=== PATIENT | male | born 1955 | race Caucasian/White ===

== ENCOUNTER 2023-04-13 07:29 | Outpatient (AMB) | payer BC, SELFPAY ==
--- NOTE | 2023-04-13 07:34 | MHC.PC.OV ---
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 Required: No Accompanied by: Self / Same As Patient Allergies erythromycin base Allergy (Severe, Verified 04/13/23 07:48) Eye Swelling Medication List - Last Reconciled 04/13/23 by Whitney Block MD pantoprazole 40 mg PO DAILY simvastatin 5 mg PO DAILY Tobacco use date assessed: 04/13/23 Fall risk assessment: No Falls in past year Last assessed Fall Risk: 04/13/23 Dental Screening Dental Screen Date: 04/13/23 Did you have a dental visit in the last 12 months?: Yes Did you have a dental problem in the last 6 months where you did not have access to dental care?: No Was dental information given to patient?: Patient has dentist HPI HPI Comments History of Present Illness Details This is a 67-year-old male with chronic GERD and pure hypercholesterolemia that comes today to establish care. GERD stable with PPIs. Had an endoscopy about 10 years ago. Has been having GERD for the past 20-30 years. Lipid panel will be order. Compliant with medications. Denies any chest pain or shortness of breath. No change in bowel or bladder habits. Last colonoscopy was about 2-3 years ago and as per patient was normal. He has history of BPH and will be referred to Urology. [facility] Surgical History History of surgery History of tonsillectomy Family History (Updated 04/13/23 @ 07:56 by Whitney Block MD) Mother Cancer Father No problems noted. Family/Other Substance use disorder Mental health disorder Maternal Uncle Lung cancer Social History (Updated 04/13/23 @ 07:56 by Whitney Block MD) Housing: House Alcohol intake: current Alcohol intake frequency: a few times a week Alcohol type: beer, wine and hard liquor Patient Tobacco Use Status: Former Tobacco user Tobacco use type: Cigarette e-Cigarette/Vaping Use: Never Used Second Hand Smoke Exposure: No service: Yes Current occupational status: retired Cognitive needs: No Hearing needs: No Vision needs: No Questionnaire PHQ-9 Over the last 2 weeks, how often have you been bothered by any of the following problems? 1. Little interest or pleasure in doing things: not at all 2. Feeling down, depressed, or hopeless: not at all 3. Trouble falling or staying asleep, or sleeping too much: not at all 4. Feeling tired or having little energy: not at all 5. Poor appetite or overeating: not at all 6. Feeling bad about yourself - or that you are a failure or have let yourself or your family down: not at all 7. Trouble concentrating on things, such as reading the newspaper or watching television: not at all 8. Moving or speaking so slowly that other people could have noticed. Or the opposite - being so fidgety or restless that you have been moving around a lot more than usual: not at all 9. Thoughts that you would be better off or of hurting yourself in some way: not at all Total score: 0 Depression Screening Interpretation: Negative 37607 - PHQ-9 Billing: Yes Source: Developed by Drs. Luke Manriquez, Alana Vega, Arias Morales and colleagues, with an educational brittanie from [employer] Thrive Questionnaire Date Thrive assessed: 04/13/23 I am a: Patient What is your living situation today?: I have a steady place to live Within the past 12 months, did the food you bought not last and you didn't have the money to get more?: Never true Within the past 12 months, did you worry whether your food would run out before you got money to buy more?: Never true Do you have trouble paying for medicines?: No Do you have trouble getting transportation to medical appointments?: No Do you have trouble paying your heating and electricity bill?: No Do you have trouble taking care of your child, family member or friend?: No Do you have trouble with day-to-day activities such as bathing, preparing meals, shopping, managing finances, etc.?: No Are you currently unemployed and looking for a job?: No Are you interested in more education?: No Please select the resources that you would like help with: None Currently or been in a relationship where the following occur: no concerns reported AUDIT C Alcohol Use Questionnaire (AUDIT-C) 1. How often do you have a drink containing alcohol?: 2-3 times a week 2. How many drinks containing alcohol do you have on a typical day when you are drinking?: 1 or 2 3. How often do you have six or more drinks on one occasion?: Never Total Score: 3 Score Reviewed/Action Taken: No CIARA-7 AMB Questionnaire CIARA-7 Date CIARA - 7 assessed: 04/13/23 Feeling nervous, anxious, or on edge: 0 = Not at all Not being able to stop or control worryin = Not at all Worrying too much about different things: 0 = Not at all Trouble relaxin = Not at all Being so restless that it is hard to sit still: 0 = Not at all Becoming easily annoyed or irritable: 0 = Not at all Feeling afraid as if something awful might happen: 0 = Not at all Total CIARA-7 score (0-4 normal; 5-9 mild; 10-14 moderate; 15-21 severe): 0 Source: Developed by Drs. Luke Manriquez, Alana Vega, Arias Morales and colleagues, with an educational brittanie from [employer] CIARA-7 Assessment Billing CIARA-7 Assessment Tool: CIARA-7 Assessment 75340 Review of Systems Const All systems reviewed & are unremarkable except as noted in HPI and below Eyes Reports no additional complaints, Denies change in vision and Denies other visual disturbances Card Denies chest pain at rest, Denies chest pain with activity, Denies edema, Denies irregular heart rhythm, Denies claudication, Denies dyspnea, Denies dyspnea on exertion, Denies orthopnea, Denies paroxysmal nocturnal dyspnea and Denies slow heart rate Resp Denies cough, Denies dyspnea and Denies dyspnea on exertion GI Denies abdominal pain, Denies change in bowel habits, Denies excessive flatus, Denies nausea and Denies vomiting Denies urinary hesitancy, Denies urinary incontinence and Denies urinary urgency Musc Denies abnormal gait, Denies atrophy, Denies deformity and Denies limited range of motion Skin/Breast Denies bleeding lesions, Denies changing lesions and Denies rash Neuro Denies abnormal gait and Denies lack of coordination Physical exam (Primary Care) Vital Signs: Last Vital Signs BP 122/78 04/13/23 07:37 BMI result Body Mass Index 27.1 Tobacco/Smoking Status: Tobacco use Status Tobacco use date assessed 04/13/23 04/13/23 07:48 Patient Tobacco Use Status Former Tobacco user 04/13/23 07:56 Tobacco use type Cigarette 04/13/23 07:56 e-Cigarette/Vaping Use Never Used 04/13/23 07:56 PHQ-9: PHQ-9 Score PHQ-9: Total score 0 04/13/23 07:57 Depression Screening Interpretation: Negative Thrive Assessment: Date of Thrive Assessment Date Thrive assessed 04/13/23 04/13/23 07:36 Currently or been in a relationship where the following occur: no concerns reported HENMT Head: Yes normal to inspection, Yes normocephalic and Yes atraumatic Ears: external ears normal General nose exam: Normal external nose present and No nasal discharge present Face and sinus: Yes sinuses nontender Mouth: lip normal Eyes General: appearance normal, both eyes and all related structures Eyelids: Yes eyelids normal Conjunctivae: conjunctivae normal Neck Neck: Yes normal visual inspection and Yes supple Resp Effort & Inspection: normal respiratory effort Auscultation: clear to auscultation bilaterally Cardio Jugular venous distension: no JVD Rate: regular rate Rhythm: regular rhythm Heart sounds: S1 normal heart sound present and S2 normal heart sound present Extrem General: Yes full ROM Assessment and Plan Assessment & Plan (1) Pure hypercholesterolemia: Code(s): E78.00 - Pure hypercholesterolemia, unspecified Plan: Repeat lipid panel. Continue statins. (2) Chronic GERD: Code(s): K21.9 - Gastro-esophageal reflux disease without esophagitis Plan: Continue PPIs (3) BPH (benign prostatic hyperplasia): Code(s): N40.0 - Benign prostatic hyperplasia without lower urinary tract symptoms Plan: Referred to Urology Orders: Orders Comprehensive [place]. Panel Fast Today E78.00 - Pure hypercholesterolemia, unspecified Lipid Panel Today E78.5 - Hyperlipidemia, unspecified PSA,Total (Free>4and<10) Today Z12.5 - Encounter for screening for malignant neoplasm of prostate Referrals Urology Referral N40.0 - Benign prostatic hyperplasia without lower urinary tract symptoms Coding Level of Care Code New Pt Level 3 (37994) Diagnoses Pure hypercholesterolemia E78.00 Chronic GERD K21.9 BPH (benign prostatic hyperplasia) N40.0 Additional Codes CIARA-7 Assessment Billing - CIARA-7 Assessment Tool: CIARA-7 Assessment 93388 ([id number]) Time Spent (min) 20
[2023-04-13 07:37] VITALS: BP 122/78; BMI 27.1
== END 2023-04-13 08:00 | disposition home or self-care (01) ==
PROVIDERS: PCP Internal Medicine; Visit Provider Internal Medicine
DX: E78.00 Pure hypercholesterolemia, unspecified (principal); K21.9 Gastro-esophageal reflux disease without esophagitis; N40.0 Benign prostatic hyperplasia without lower urinary tract symptoms
CPT/HCPCS: 99203

== ENCOUNTER 2023-04-13 08:08 | Outpatient (REF) | payer BC, SELFPAY ==
[2023-04-13 09:23] LABS: Alanine Aminotransferase 95 U/L (0-40); Albumin Level 4.4 g/dL (3.5-5.0); Alkaline Phosphatase 44 U/L (39-117); Anion Gap 15 (12-20); Aspartate Amino Transferase 49 U/L (5-37); Bilirubin Total 0.5 mg/dL (0.0-1.0); Blood Urea Nitrogen 15 mg/dL (9-16); Calcium 9.4 mg/dL (8.4-10.2); Carbon Dioxide 21 mmol/L (22-29); Chloride 107 mmol/L (96-108); Cholesterol 148 mg/dL; Estimated Glomerular Filt Rate > 60; Glucose Fasting 112 mg/dL (60-99); HDL Cholesterol 44 mg/dL; LDL Cholesterol Calculated 89 mg/dl; Potassium 4.3 mmol/L (3.3-5.1); Sodium 139 mmol/L (135-145); Total Protein 7.3 g/dL (6.5-8.0); Triglycerides 78 mg/dL
[2023-04-13 09:36] LABS: PSA,Total (Free>4and<10) 0.98 ng/mL (0.00-4.00)
== END 2023-04-13 08:09 | disposition home or self-care (01) ==
LOC: HO.LAB 08:08
PROVIDERS: PCP Internal Medicine; Visit Provider Internal Medicine
DX: Z12.5 Encounter for screening for malignant neoplasm of prostate (principal); E78.00 Pure hypercholesterolemia, unspecified; E78.5 Hyperlipidemia, unspecified
CPT/HCPCS: 36415; 80053; 80061; 84153

== ENCOUNTER 2023-05-30 12:55 | Outpatient (AMB) | payer BC, SELFPAY ==
--- NOTE | 2023-05-30 13:07 | MHC.OFFVIS ---
Intake Intake Visit Reasons: BPH without lower urinary tract symptoms Intake Note: New Patient presents for initial visit history of abnormal CHAVO Urology Medications: none Blood Thinner: none PVR: 0ml's Tree Pruner Required: No Accompanied by: Self / Same As Patient Allergies erythromycin base Allergy (Severe, Verified 05/30/23 21:42) Eye Swelling Medication List - Last Reconciled 05/30/23 by ARPIT HuffP- pantoprazole 40 mg PO DAILY simvastatin 20 mg PO BEDTIME 90 days HPI HPI Comments History of Present Illness Details Adam is a very pleasant 67-year-old male patient of Dr. Stewart. He has a PMH of GERD. He presents to the office today as a new patient to establish urology care. In discussion with the patient today he reports to be doing and feeling well. He reports following up with urologist in [place] where he used to live at which time he underwent a prostate biopsy for an abnormal CHAVO. He reports biopsy to have been negative. He discusses at length having a bad experience with the biopsy. In review of patient's chart it appears PSA has been obtained. These results were reviewed with the patient today. PSA 04/09--1.0. When asked patient denies any bothersome urinary issues or concerns at this time. When asked he denies urinary urgency, urinary frequency, incontinence, nocturia, hematuria, dysuria, foul smelling urine, changes to urinary stream, flank pain, fever, and or chills. He is happy with his current voiding parameters. He otherwise offers no issues or concerns at this time. CHAVO offered however deferred. Discussed signing medical release form for previous urology records for continuity of care. In office urinalysis results reviewed with the patient today. PVR 0 mL. [facility] Surgical History History of tonsillectomy History of surgery Family History Mother Cancer Father No problems noted. Family/Other Substance use disorder Mental health disorder Maternal Uncle Lung cancer Social History Housing: House Alcohol intake: current Alcohol intake frequency: a few times a week Alcohol type: beer, wine and hard liquor Patient Tobacco Use Status: Former Tobacco user Tobacco use type: Cigarette e-Cigarette/Vaping Use: Never Used Second Hand Smoke Exposure: No service: Yes Current occupational status: retired Cognitive needs: No Hearing needs: No Vision needs: No Review of Systems Const All systems reviewed & are unremarkable except as noted in HPI and below Reports no additional complaints Eyes Reports no additional complaints ENT Reports no additional complaints Card Reports no additional complaints Resp Reports no additional complaints GI Reports as per HPI Reports as per HPI Musc Reports no additional complaints Neuro Reports no additional complaints Psych Reports no additional complaints Endo Reports no additional complaints Guillermo/Lymph Reports no additional complaints Aller/Immun Reports no additional complaints Physical Exam Const General: cooperative, healthy appearing, comfortable, no acute distress, well developed, alert and awake Orientation/consciousness: patient oriented x3 Limitations: no limitations HEENT Head: Yes normal to inspection, Yes normocephalic and Yes atraumatic Ears: hearing grossly normal bilaterally Eyes General: appearance normal, both eyes and all related structures Neck Neck: Yes normal visual inspection and Yes trachea midline Chest Chest palpation & inspection: normal inspection of the chest Resp Effort & Inspection: normal respiratory effort and able to speak in complete sentences Cardio Rate: regular rate GI Inspection: Yes normal to inspection General: Yes no CVA tenderness Back/Spine/Pelvis Back: no CVA tenderness Skin General skin exam: no rashes or lesions noted Neuro General: patient oriented x3 Extrem General: Yes normal to inspection Psych Appearance: grossly normal and well kempt Mental Status: mental status grossly normal Speech and movement: Normal speech and movement present and Clear speech present Affect: normal affect Attitude: cooperative Thought process: Normal thought process present Thought content: Normal thought content present Insight: Good insight present (Psych) Judgement: Good judgement present (Psych) Results AMB Urinalysis, Automated UA Leukoctes 0 Garry/uL Last Edit by [employer] on 05/30/23 13:26 UA Nitrite Last Edit by M [employer] on 05/30/23 13:26 UA Urobilinogen 0.2 mg/dL Last Edit by Mamaherb on 05/30/23 13:26 UA Protein 0 mg/dL Last Edit by Mamaherb on 05/30/23 13:26 UA pH 6.0 Last Edit by [employer] Amanda on 05/30/23 13:26 UA Blood 0 Eric/uL Last Edit by Haleigh Ariasnishant on 05/30/23 13:26 UA Specific [place] 1.015 Last Edit by Haleigh Juananishant on 05/30/23 13:26 UA Ketone Negative Last Edit by Haleigh Patel on 05/30/23 13:26 UA Bilirubin 0 mg/dL Last Edit by Haleigh Patel on 05/30/23 13:26 UA Glucose 0 mg/dL Last Edit by Haleigh Patel on 05/30/23 13:26 Results Reviewed Results Reviewed: Laboratory Last Values Urine pH (Auto) 6.0 05/30/23 13:13 Specific [place] (Auto) 1.015 05/30/23 13:13 Urine Protein (Auto) 0 mg/dL 05/30/23 13:13 Glucose (UA)(Auto) 0 mg/dL 05/30/23 13:13 Urine Ketones (Auto) Negative 05/30/23 13:13 Urine Blood (Auto) 0 Eric/uL 05/30/23 13:13 Urine Bilirubin (Auto) 0 mg/dL 05/30/23 13:13 Urine Urobilinogen (Auto) 0.2 mg/dL 05/30/23 13:13 Leukocyte Esterase (Auto) 0 Garry/uL 05/30/23 13:13 Assessment & Plan Assessment & Plan (1) Abnormal digital rectal exam: Code(s): R68.89 - Other general symptoms and signs Plan In office urinalysis results reviewed with the patient today; as noted above. PVR 0 mL. Discussed obtaining previous urology records for continuity of care. Patient denies any bothersome urinary issues or concerns at this time. Recent PSA results reviewed with the patient today; as noted above Patient with history of abnormal CHAVO and negative biopsy in the past; will attempt to obtain previous urology records CHAVO offered however deferred. Will obtain PSA in 1 year. Follow-up in 1 year with lab to be completed prior; or sooner with any issues, concerns, and or questions. Orders: Orders AMB Urinalysis Automated Today Z13.9 - Encounter for screening, unspecified Prostate Specific Antigen 364 Days R68.89 - Other general symptoms and signs Patient Instructions: The patient had an opportunity to ask questions regarding the treatment plan. All questions were answered. Physical exam, labs, and imaging were discussed and reviewed in detail. As well as risks, benefits, and discussion of treatment choices. No major barriers to understanding were identified. The patient expressed understanding and agreement with the above treatment plan. The patient was made aware they should contact our office by phone for worsening of their current condition, the appearance of new symptoms, or with any questions or concerns. Compliance is encouraged with any medications and follow up testing that is ordered. It is a privilege to be allowed the opportunity to participate in? your urological care.? Again, if you have any questions or concerns If you have any questions or concerns please do not hesitate to contact me. The office is [phone]. This note is constructed using voice recognition software. While every effort has been made to ensure accuracy curriculum assistant principal errors may have been included. Yours sincerely, LENARD Huff Coding Level of Care Code New Pt Level 3 (46535) Diagnoses Abnormal digital rectal exam R68.89
== END 2023-05-30 13:39 | disposition home or self-care (01) ==
PROVIDERS: PCP Internal Medicine; Visit Provider Nurse Practitioner Family
DX: R68.89 Other general symptoms and signs (principal)
CPT/HCPCS: 99203

== ENCOUNTER → 2023-05-30 12:55 | Outpatient (BNVA) | payer BC, SELFPAY | PROVIDERS: PCP Internal Medicine; Visit Provider Nurse Practitioner Family | DX: R68.89 Other general symptoms and signs (principal) | CPT/HCPCS: 81003 ==

== ENCOUNTER 2023-07-03 11:32 | Outpatient (REF) | payer BC, SELFPAY ==
[2023-07-03 13:19] LABS: Alanine Aminotransferase 59 U/L (0-40); Albumin Level 4.7 g/dL (3.5-5.0); Alkaline Phosphatase 47 U/L (39-117); Aspartate Amino Transferase 31 U/L (5-37); Bilirubin Direct 0.2 mg/dL (0.0-0.5); Bilirubin Total 0.6 mg/dL (0.0-1.0); Total Protein 7.6 g/dL (6.5-8.0)
== END 2023-07-03 11:33 | disposition home or self-care (01) ==
LOC: HO.LAB 11:32
PROVIDERS: PCP Internal Medicine; Visit Provider Internal Medicine
DX: E78.00 Pure hypercholesterolemia, unspecified (principal)
CPT/HCPCS: 36415; 80076

== ENCOUNTER 2023-08-16 15:33 | Outpatient (AMB) | payer BC, SELFPAY ==
[2023-08-16 15:35] VITALS: BP 132/78; BMI 27.3
--- NOTE | 2023-08-16 15:35 | MHC.PC.OV ---
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 Required: No Accompanied by: Self / Same As Patient Allergies erythromycin base Allergy (Severe, Verified 08/16/23 15:46) Eye Swelling Medication List - Last Reconciled 08/16/23 by Whitney Block MD pantoprazole 40 mg PO DAILY simvastatin 20 mg PO BEDTIME 90 days Tobacco use date assessed: 04/13/23 Fall risk assessment: No Falls in past year Last assessed Fall Risk: 08/16/23 Dental Screening Dental Screen Date: 08/16/23 Did you have a dental visit in the last 12 months?: Yes Did you have a dental problem in the last 6 months where you did not have access to dental care?: No Was dental information given to patient?: Patient has dentist HPI HPI Comments History of Present Illness Details This is a 67-year-old male with pure hypercholesterolemia, BPH, and chronic GERD that comes today for follow-up on his conditions. Last cholesterol was stable. BPH is follow by a Urology. GERD stable with PPIs. Was a former smoker and ultrasound of the abdomen will be done to rule out abdominal aortic aneurysm. Complains of abdominal discomfort and has diastasis recti in abdomen. No chest pain or shortness of breath. Transaminitis improved when simvastatin was decreased from 40 mg to 20 mg. [facility] Surgical History History of tonsillectomy History of surgery Family History Mother Cancer Father No problems noted. Family/Other Substance use disorder Mental health disorder Maternal Uncle Lung cancer Social History Housing: House Alcohol intake: current Alcohol intake frequency: a few times a week Alcohol type: beer, wine and hard liquor Patient Tobacco Use Status: Former Tobacco user Tobacco use type: Cigarette e-Cigarette/Vaping Use: Never Used Second Hand Smoke Exposure: No service: Yes Current occupational status: retired Cognitive needs: No Hearing needs: No Vision needs: No Questionnaire Thrive Questionnaire Date Thrive assessed: 04/13/23 CIARA-7 AMB Questionnaire CIARA-7 Date CIARA - 7 assessed: 04/13/23 Source: Developed by Drs. Luke Manriquez, Alana Vega, Arias Morales and colleagues, with an educational brittanie from [employer]. Review of Systems Const All systems reviewed & are unremarkable except as noted in HPI and below Eyes Reports no additional complaints, Denies change in vision and Denies other visual disturbances Card Denies chest pain at rest, Denies chest pain with activity, Denies edema, Denies irregular heart rhythm, Denies claudication, Denies dyspnea, Denies dyspnea on exertion, Denies orthopnea, Denies paroxysmal nocturnal dyspnea and Denies slow heart rate Resp Denies cough, Denies dyspnea and Denies dyspnea on exertion GI Reports abdominal pain, Denies change in bowel habits, Denies excessive flatus, Denies nausea and Denies vomiting Denies urinary hesitancy, Denies urinary incontinence and Denies urinary urgency Musc Denies abnormal gait, Denies atrophy, Denies deformity and Denies limited range of motion Skin/Breast Denies bleeding lesions, Denies changing lesions and Denies rash Neuro Denies abnormal gait and Denies lack of coordination Physical exam (Primary Care) Vital Signs: Last Vital Signs BP 132/78 08/16/23 15:35 BMI result Body Mass Index 27.3 Tobacco/Smoking Status: Tobacco use Status Tobacco use date assessed 04/13/23 08/16/23 15:39 Patient Tobacco Use Status Former Tobacco user 08/16/23 15:39 Tobacco use type Cigarette 08/16/23 15:39 e-Cigarette/Vaping Use Never Used 08/16/23 15:39 Thrive Assessment: Date of Thrive Assessment Date Thrive assessed 04/13/23 08/16/23 15:39 Eyes General: appearance normal, both eyes and all related structures Eyelids: Yes eyelids normal Conjunctivae: conjunctivae normal Neck Neck: Yes normal visual inspection and Yes supple Resp Effort & Inspection: normal respiratory effort Auscultation: clear to auscultation bilaterally Cardio Jugular venous distension: no JVD Rate: regular rate Rhythm: regular rhythm Heart sounds: S1 normal heart sound present and S2 normal heart sound present GI Other: rectus diastasis Palpation (GI): Soft to palpation Auscultation: normal bowel sounds Extrem General: Yes full ROM Office Procedures Flu Questionnaire Does the patient have a severe egg allergy?: No Immunizations flu vacc [id number] 6mos up(PF) 60 mcg(15 mcgx4)/0.5 mL IM syringe Performing Provider: Whitney Block MD [facility] Documented (not given) by: PASCALE Winston on 08/16/23 15:40 Reason Not Given: Patient Refused Assessment and Plan Assessment & Plan (1) Pure hypercholesterolemia: Code(s): E78.00 - Pure hypercholesterolemia, unspecified Plan: Continue statins. (2) Chronic GERD: Code(s): K21.9 - Gastro-esophageal reflux disease without esophagitis Plan: Continue PPIs. (3) BPH (benign prostatic hyperplasia): Code(s): N40.0 - Benign prostatic hyperplasia without lower urinary tract symptoms Plan: Follow-up with Urology. (4) Former smoker: Code(s): Z87.891 - Personal history of nicotine dependence Plan: Ultrasound of the abdomen ordered to rule out abdominal aortic aneurysm. Orders: Orders Influenza [id number] Immunization Today Z23 - Encounter for immunization US abdominal aortic aneurysm Today Z87.891 - Personal history of nicotine dependence Lipid Panel 8 Months E78.5 - Hyperlipidemia, unspecified Comprehensive [place]. Panel Fast 8 Months E78.00 - Pure hypercholesterolemia, unspecified Magnesium 8 Months K21.9 - Gastro-esophageal reflux disease without esophagitis Medications: Refilled pantoprazole 40 mg PO DAILY 90 tabs 1RF K21.9 - Gastro-esophageal reflux disease without esophagitis simvastatin 20 mg PO BEDTIME 90 tabs 1RF 90 days Coding Level of Care Code Est Pt Level 4 (37702) Diagnoses Pure hypercholesterolemia E78.00 Chronic GERD K21.9 BPH (benign prostatic hyperplasia) N40.0 Former smoker Z87.891 Time Spent (min) 21
== END 2023-08-16 15:57 | disposition home or self-care (01) ==
PROVIDERS: PCP Internal Medicine; Visit Provider Internal Medicine
DX: E78.00 Pure hypercholesterolemia, unspecified (principal); K21.9 Gastro-esophageal reflux disease without esophagitis; N40.0 Benign prostatic hyperplasia without lower urinary tract symptoms; Z87.891 Personal history of nicotine dependence
CPT/HCPCS: 99214

== ENCOUNTER 2023-09-19 08:39 | Outpatient (REF) | payer BC, SELFPAY | END 2023-09-19 08:40 | disposition home or self-care (01) | LOC: HO.US 08:39 | PROVIDERS: PCP Internal Medicine; Visit Provider Internal Medicine | DX: Z13.6 Encounter for screening for cardiovascular disorders (principal); Z87.891 Personal history of nicotine dependence | CPT/HCPCS: 76706 ==

== ENCOUNTER 2024-02-05 10:09 | Outpatient (AMB) | payer BC, SELFPAY ==
--- NOTE | 2024-02-05 10:38 | MHC.OFFWIV ---
Intake Vital Signs 02/05/24 10:40 Height 5 ft 10 in Weight 195 lb 6 oz BMI 28.0 BP 138/80 Blood Pressure Location Lt brachial Position Sitting Respiration 16 Pulse 75 Pulse Source Pulse Oximeter Temp 97.7 F Temp Source Temporal Artery Scan Pulse Oximetry (%) 95 Oxygen Delivery Method Room Air Intake Visit Reasons: Clogged ears Intake Note: Clogged ears. Used debrox for 4 days prior to appointment. Patient Tobacco Use Status: Former Tobacco user Physician Assistant Certified Required: No Allergies erythromycin base Allergy (Severe, Verified 02/05/24 11:25) Eye Swelling Medication List - Last Reconciled 02/05/24 by Christy Montalvo, [facility]- pantoprazole 40 mg PO DAILY simvastatin 20 mg PO BEDTIME 90 days Do you need a note to return to daycare/school/sports/work: No HPI HPI Comments History of Present Illness Details Here today after going to hearing clinic & was told he needed his ears cleaned out does have a hx of perforated ear drum on L this was in 1969 Denies pain or drainage Has been using debrox Flying out to [place] Monday & wants to make sure his ears are all set. [facility] Surgical History History of tonsillectomy History of surgery Family History Mother Cancer Father No problems noted. Family/Other Substance use disorder Mental health disorder Maternal Uncle Lung cancer Social History Housing: House Alcohol intake: current Alcohol intake frequency: a few times a week Alcohol type: beer, wine and hard liquor Patient Tobacco Use Status: Former Tobacco user Tobacco use type: Cigarette e-Cigarette/Vaping Use: Never Used Second Hand Smoke Exposure: No service: Yes Current occupational status: retired Cognitive needs: No Hearing needs: No Vision needs: No Review of Systems Const All systems reviewed & are unremarkable except as noted in HPI and below Physical Exam Vital Signs: Last Vital Signs Temp 97.7 F 02/05/24 10:40 Pulse 75 02/05/24 10:40 Resp 16 02/05/24 10:40 BP 138/80 02/05/24 10:40 Pulse Ox 95 02/05/24 10:40 Oxygen Delivery Method Room Air 02/05/24 10:40 BMI result Body Mass Index 28.0 Const Other: Awake alert oriented Cerumen impaction bilat left greater than right s/p lavage successful removal of large amts of cerumen, EAC clear, TM intact. Pt reports improvement in hearing Office Procedures Cerumen Removal From which ear canal was the cerumen removed: bilateral Removal: irrigation Notes: patient tolerated procedure well, no complications and ear canal clear 56295-Seg Irrigation/Lavage Assessment & Plan Assessment & Plan (1) Impacted cerumen, bilateral: Code(s): H61.23 - Impacted cerumen, bilateral Plan: . Patient Instructions: Earwax (Cerumen Impaction) Created in Ears Earwax, called cerumen, is produced by special wax-forming glands located in the skin of the outer one-third of the ear canal. It is normal to have cerumen in ear canal as this waxy substance serves as a self-cleaning agent with protective, lubricating, and antibacterial properties. The absence of earwax may result in dry, itchy ears. Self-cleaning means there is a slow and housing management officer movement of earwax and skin cells from the eardrum to the ear opening. Old earwax is constantly being transported, assisted by chewing and jaw motion, from the ear canal to the ear opening where, most of the time, it dries, flakes, and falls out. What Are the Symptoms of an Earwax Blockage? Symptoms of an earwax problem may include: Earache Feeling of plugged hearing or fullness in the ear Partial hearing loss that gets worse Tinnitus, ringing, or noises in the ear Itching, odor, or discharge Coughing Pain Infection What Causes Earwax Blockage? When a patient has wax blockage against the eardrum, it is often because they have been probing the ear with such things as cotton-tipped swabs, jose manuel pins, or twisted napkin corners. These objects only push the wax in deeper in the ear canal. Why Is It Dangerous to Use Swabs to Remove Earwax? Wax blockage is one of the most common causes of hearing loss. This is often caused by attempts to clean the ear with cotton swabs. Most cleaning attempts merely push the wax deeper into the ear canal which is shaped like an hourglass, causing a blockage at the narrowing part of the ear canal. In addition, accidental trauma to the ear drum or ear bones can occur if the swab is pushed too deep. Good intentions to keep ears clean may lessen the ability to hear. The ear is a delicate and complicated body part, including the skin of the ear canal and the eardrum. Therefore, special care should be given to this part of the body. Discontinue the habit of inserting cotton-tipped swabs or other objects into the ear canals. What Are the Treatment Options? Cleaning a working ear can be done by washing it with a soft cloth, but do not insert anything into the ear. Ideally, the ear canals should never have to be cleaned. However, that isn?t always the case. The ears should be cleaned when enough earwax gathers to cause symptoms or to prevent a needed assessment of the ear by your doctor. This condition is call cerumen impaction. Most cases of ear wax blockage respond to home treatments used to soften wax. Patients can try placing a few drops of mineral oil, baby oil, glycerin, or commercial drops in the ear. Detergent drops such as hydrogen peroxide or carbamide peroxide (available in most pharmacies) may also aid in the removal of wax. Irrigation or ear syringing is commonly used for cleaning and can be performed by a physician or at home using a commercially available irrigation kit. Common solutions used for syringing include water and saline, which should be warmed to body temperature to prevent dizziness. Ear syringing is most effective when water, saline, or wax dissolving drops are put in the ear canal 15 to 30 minutes before treatment. Caution is advised to avoid having your ears irrigated if you have diabetes, a hole in the eardrum (perforation), tube in the eardrum, skin problems such as eczema in the ear canal or a weakened immune system. >> If you have been prescribed Debrox, use as directed for 5 nights and return to the office on Day 6 for an ear lavage to remove the wax<< Manual removal of earwax is also effective. This is most often performed by an ENT (ear, nose, and throat) specialist, or emt intermediate, using suction or special miniature instruments, and a microscope to magnify the ear canal. Manual removal is preferred if your ear canal is narrow, the eardrum has a perforation or tube, other methods have failed, or if you have skin problems affecting the ear canal, diabetes or a weakened immune system. When Should I Talk to a Doctor? If home treatments do not help, or if wax has accumulated so much that it blocks your ear canal and your ability to hear, an ENT specialist may prescribe eardrops designed to soften wax, or they may wash or vacuum it out. Your ENT specialist may also need to remove the wax under microscopic visualization. If there is a possibility of a perforation in the eardrum, consult a physician prior to trying any [id number] remedies. Putting eardrops or other products in the ear with the presence of an eardrum perforation may cause pain or an infection. Washing water through such a hole could start an infection. If you are prone to repeated wax impaction or use hearing aids, consider seeing your doctor every six to 12 months for a checkup and routine preventive cleaning. What Questions Should I Ask My Doctor? What are the benefits and risks/side effects of different cerumen removal management options: earwax softening products, water irrigation vs. physical removal? Does cerumen accumulation vary with age, gender, familial or dietary intake? How do I manage swimming underwater with cerumen impaction? Should anything be done to the ears to prevent a buildup of earwax? How often should cerumen be removed from the ears? Are ear candles a safe option for removing earwax? Coding Level of Care Code Est Pt Level 4 (61626) Diagnoses Impacted cerumen, bilateral H61.23 CPT Codes Office Procedure - CPT: 15227-Zgr Irrigation/Lavage ([id number])
[2024-02-05 10:40] VITALS: BP 138/80; PULSE 75; RESP 16; TEMP 36.5; O2SAT 95; BMI 28.0
== END 2024-02-05 14:11 | disposition home or self-care (01) ==
PROVIDERS: PCP Internal Medicine; Visit Provider Nurse Practitioner Family
DX: H61.23 Impacted cerumen, bilateral (principal)
CPT/HCPCS: 69209; 99213

== ENCOUNTER 2024-02-05 12:01 | Outpatient (AMB) | payer BC, SELFPAY ==
[2024-02-05 12:29] VITALS: BP 132/80; BMI 27.5
--- NOTE | 2024-02-05 12:29 | MHC.PC.OV ---
Vital Signs 02/05/24 12:29 Height 5 ft 10 in Weight 192 lb BMI 27.5 BP 132/80 Blood Pressure Location Lt brachial Position Sitting Intake Visit Reasons: cramps in RT calf/toes are getting numb Studio Associate Required: No Accompanied by: Self / Same As Patient Allergies erythromycin base Allergy (Severe, Verified 02/05/24 12:41) Eye Swelling Medication List - Last Reconciled 02/05/24 by Whitney Block MD pantoprazole 40 mg PO DAILY simvastatin 20 mg PO BEDTIME 90 days Tobacco use date assessed: 02/05/24 Fall risk assessment: No Falls in past year Last assessed Fall Risk: 02/05/24 Dental Screening Dental Screen Date: 02/05/24 Did you have a dental visit in the last 12 months?: Yes Did you have a dental problem in the last 6 months where you did not have access to dental care?: No Was dental information given to patient?: Patient has dentist HPI HPI Comments History of Present Illness Details This is a 68-year-old male with pure hypercholesterolemia and chronic GERD that comes today complaining of muscle cramps and right leg pain that has been present for about 2 weeks more prominent at night. He does have toe numbness and tingling in the right foot. Denies previous trauma. Denies prolonged immobilization. No side effects from statins. GERD stable with PPIs. Will check magnesium levels due to his muscle cramps. [facility] Surgical History History of tonsillectomy History of surgery Family History Mother Cancer Father No problems noted. Family/Other Substance use disorder Mental health disorder Maternal Uncle Lung cancer Social History Housing: House Alcohol intake: current Alcohol intake frequency: a few times a week Alcohol type: beer, wine and hard liquor Patient Tobacco Use Status: Former Tobacco user Tobacco use type: Cigarette e-Cigarette/Vaping Use: Never Used Second Hand Smoke Exposure: No service: Yes Current occupational status: retired Cognitive needs: No Hearing needs: No Vision needs: No Questionnaire PHQ-9 Over the last 2 weeks, how often have you been bothered by any of the following problems? 1. Little interest or pleasure in doing things: not at all 2. Feeling down, depressed, or hopeless: not at all 3. Trouble falling or staying asleep, or sleeping too much: not at all 4. Feeling tired or having little energy: not at all 5. Poor appetite or overeating: not at all 6. Feeling bad about yourself - or that you are a failure or have let yourself or your family down: not at all 7. Trouble concentrating on things, such as reading the newspaper or watching television: not at all 8. Moving or speaking so slowly that other people could have noticed. Or the opposite - being so fidgety or restless that you have been moving around a lot more than usual: not at all 9. Thoughts that you would be better off or of hurting yourself in some way: not at all Total score: 0 Depression Screening Interpretation: Negative Depression Screening Done: Yes 25897 - PHQ-9 Billing: Yes Source: Developed by Drs. Luke Manriquez, Alana Vega, Arias Morales and colleagues, with an educational brittanie from [employer]. Thrive Questionnaire Date Thrive assessed: 02/05/24 I am a: Patient What is your living situation today?: I have a steady place to live Within the past 12 months, did the food you bought not last and you didn't have the money to get more?: Never true Within the past 12 months, did you worry whether your food would run out before you got money to buy more?: Never true Do you have trouble paying for medicines?: No Do you have trouble getting transportation to medical appointments?: No Do you have trouble paying your heating and electricity bill?: No Do you have trouble taking care of your child, family member or friend?: No Do you have trouble with day-to-day activities such as bathing, preparing meals, shopping, managing finances, etc.?: No Are you currently unemployed and looking for a job?: No Are you interested in more education?: No Please select the resources that you would like help with: None Currently or been in a relationship where the following occur: no concerns reported THRIVE Score: 0 AUDIT C Alcohol Use Questionnaire (AUDIT-C) 1. How often do you have a drink containing alcohol?: 2-3 times a week 2. How many drinks containing alcohol do you have on a typical day when you are drinking?: 1 or 2 3. How often do you have six or more drinks on one occasion?: Never Total Score: 3 CIARA-7 AMB Questionnaire CIARA-7 Date CIARA - 7 assessed: 02/05/24 Feeling nervous, anxious, or on edge: 0 = Not at all Not being able to stop or control worryin = Not at all Worrying too much about different things: 0 = Not at all Trouble relaxin = Not at all Being so restless that it is hard to sit still: 0 = Not at all Becoming easily annoyed or irritable: 0 = Not at all Feeling afraid as if something awful might happen: 0 = Not at all Total CIARA-7 score (0-4 normal; 5-9 mild; 10-14 moderate; 15-21 severe): 0 Source: Developed by Drs. Luke Manriquez, Alana Vega, Arias Morales and colleagues, with an educational brittanie from [employer]. CIARA-7 Assessment Billing CIARA-7 Assessment Tool: CIARA-7 Assessment 95726 Review of Systems Const All systems reviewed & are unremarkable except as noted in HPI and below Eyes Reports no additional complaints, Denies change in vision and Denies other visual disturbances Card Denies chest pain at rest, Denies chest pain with activity, Denies edema, Denies irregular heart rhythm, Denies claudication, Denies dyspnea, Denies dyspnea on exertion, Denies orthopnea, Denies paroxysmal nocturnal dyspnea and Denies slow heart rate Resp Denies cough, Denies dyspnea and Denies dyspnea on exertion Musc Reports arthralgias, Reports muscle cramps and Reports tingling Neuro Reports tingling Physical exam (Primary Care) Vital Signs: Last Vital Signs BP 132/80 02/05/24 12:29 BMI result Body Mass Index 27.5 Tobacco/Smoking Status: Tobacco use Status Tobacco use date assessed 02/05/24 02/05/24 12:38 Patient Tobacco Use Status Former Tobacco user 02/05/24 12:32 Tobacco use type Cigarette 02/05/24 12:32 e-Cigarette/Vaping Use Never Used 02/05/24 12:32 PHQ-9: PHQ-9 Score PHQ-9: Total score 0 02/05/24 12:38 Depression Screening Interpretation: Negative Thrive Assessment: Date of Thrive Assessment Date Thrive assessed 02/05/24 02/05/24 12:38 Currently or been in a relationship where the following occur: no concerns reported Resp Effort & Inspection: normal respiratory effort Auscultation: clear to auscultation bilaterally Cardio Jugular venous distension: no JVD Rate: regular rate Rhythm: regular rhythm Heart sounds: S1 normal heart sound present and S2 normal heart sound present Extrem General: Yes full ROM Assessment and Plan Assessment & Plan (1) Chronic GERD: Code(s): K21.9 - Gastro-esophageal reflux disease without esophagitis Plan: Continue PPIs. (2) Pure hypercholesterolemia: Code(s): E78.00 - Pure hypercholesterolemia, unspecified Plan: Continue statins. (3) Right leg pain: Code(s): M79.604 - Pain in right leg Plan: Ultrasound ordered to rule out DVT. (4) Muscle cramp: Code(s): R25.2 - Cramp and spasm Plan: I order magnesium levels. Orders: Orders US venous duplex LE RT Today M79.604 - Pain in right leg Magnesium Today R25.2 - Cramp and spasm Coding Level of Care Code Est Pt Level 4 (36683) Diagnoses Chronic GERD K21.9 Pure hypercholesterolemia E78.00 Right leg pain M79.604 Muscle cramp R25.2 Additional Codes CIARA-7 Assessment Billing - CIARA-7 Assessment Tool: CIARA-7 Assessment 29702 ([id number]) Time Spent (min) 22
== END 2024-02-05 12:49 | disposition home or self-care (01) ==
PROVIDERS: PCP Internal Medicine; Visit Provider Internal Medicine
DX: K21.9 Gastro-esophageal reflux disease without esophagitis (principal); E78.00 Pure hypercholesterolemia, unspecified; M79.604 Pain in right leg; R25.2 Cramp and spasm
CPT/HCPCS: 99213

== ENCOUNTER 2024-02-05 13:27 | Outpatient (REF) | payer BC, SELFPAY ==
--- NOTE | ~2024-02-05 | US_ITS ---
EXAMINATION: US VENOUS ULTRASOUND WITH DOPPLER LOWER EXTREMITY, RIGHT CLINICAL INFORMATION: Pain COMPARISON: None available. TECHNIQUE: Ultrasound of the deep veins is performed from the hip to the calf with compression sonography and color and pulse Doppler assessment. Spectral analysis with color-flow imaging is performed. FINDINGS: There is normal venous compression and respiratory variation and augmented flow. The visualized common femoral vein, superficial femoral vein, profunda femoral vein, popliteal vein, and the trifurcation region shows no evidence of deep venous thrombosis. There is no significant popliteal fossa cyst. If the patient's symptoms persist, followup ultrasound in 5 days 7 days might be of value to exclude proximal propagation from a non-visualized calf vein. US/US venous duplex LE RT IMPRESSION: No DVT demonstrated in the right lower extremity.
== END 2024-02-05 13:28 | disposition home or self-care (01) ==
LOC: HO.US 13:27
PROVIDERS: PCP Internal Medicine; Visit Provider Internal Medicine
DX: M79.604 Pain in right leg (principal)
CPT/HCPCS: 93971

== ENCOUNTER 2024-04-15 07:43 | Outpatient (AMB) | payer BC, SELFPAY ==
[2024-04-15 07:50] VITALS: BP 120/76; BMI 26.7
--- NOTE | 2024-04-15 07:50 | A.OFFPC_ITS ---
Vital Signs 04/15/24 07:50 Height 5 ft 10 in Weight 186 lb BMI 26.7 BP 120/76 Blood Pressure Location Lt brachial Position Sitting Intake Visit Reasons: PE Intake Note: Patient here for a physical exam Rose Grower Required: No Accompanied by: Self / Same As Patient Allergies erythromycin base Allergy (Severe, Verified 04/15/24 08:10) Eye Swelling Medication List - Last Reconciled 04/15/24 by Whitney Block MD magnesium oxide 500 mg PO DAILY pantoprazole 40 mg PO DAILY simvastatin 20 mg PO BEDTIME 90 days Tobacco use date assessed: 02/05/24 Fall risk assessment: No Falls in past year Last assessed Fall Risk: 04/15/24 Dental Screening Dental Screen Date: 02/05/24 HPI HPI Comments History of Present Illness Details This is a 68-year-old male that comes for his physical exam. Denies any acute complaints. Declines pneumonia vaccine and any other type of vaccine. Last colonoscopy was less than 2 years ago and he was normal. [facility] Surgical History History of tonsillectomy History of surgery Family History Mother Cancer Father No problems noted. Family/Other Substance use disorder Mental health disorder Maternal Uncle Lung cancer Social History Housing: House Alcohol intake: current Alcohol intake frequency: a few times a week Alcohol type: beer, wine and hard liquor Patient Tobacco Use Status: Former Tobacco user Tobacco use type: Cigarette e-Cigarette/Vaping Use: Never Used Second Hand Smoke Exposure: No service: Yes Current occupational status: retired Cognitive needs: No Hearing needs: No Vision needs: No Questionnaire Thrive Questionnaire Date Thrive assessed: 02/05/24 CIARA-7 AMB Questionnaire CIARA-7 Date CIARA - 7 assessed: 02/05/24 Source: Developed by Drs. Luke Manriquez, Alana Vega, Arias Morales and colleagues, with an educational brittanie from [employer]. Review of Systems Const All systems reviewed & are unremarkable except as noted in HPI and below Card Denies chest pain at rest, Denies chest pain with activity, Denies edema, Denies irregular heart rhythm, Denies claudication, Denies dyspnea, Denies dyspnea on exertion, Denies orthopnea, Denies paroxysmal nocturnal dyspnea and Denies slow heart rate Resp Denies cough, Denies dyspnea and Denies dyspnea on exertion GI Denies abdominal pain, Denies change in bowel habits, Denies excessive flatus, Denies nausea and Denies vomiting Denies urinary hesitancy, Denies urinary incontinence and Denies urinary urgency Neuro Denies behavioral changes, Denies confusion and Denies lack of coordination Psych Denies behavioral changes and Denies confusion Physical exam (Primary Care) Vital Signs: Last Vital Signs BP 120/76 04/15/24 07:50 BMI result Body Mass Index 26.7 Tobacco/Smoking Status: Tobacco use Status Tobacco use date assessed 02/05/24 04/15/24 07:54 Patient Tobacco Use Status Former Tobacco user 04/15/24 07:54 Tobacco use type Cigarette 04/15/24 07:54 e-Cigarette/Vaping Use Never Used 04/15/24 07:54 Thrive Assessment: Date of Thrive Assessment Date Thrive assessed 02/05/24 04/15/24 07:54 Const General: No confusion Orientation/consciousness: patient oriented x3 and No confusion HENMT Head: Yes normal to inspection, Yes normocephalic and Yes atraumatic Ears: external ears normal Eyes General: appearance normal, both eyes and all related structures Eyelids: Yes eyelids normal Conjunctivae: conjunctivae normal Neck Neck: Yes normal visual inspection and Yes supple Resp Effort & Inspection: normal respiratory effort Auscultation: clear to auscultation bilaterally Cardio Jugular venous distension: no JVD Rate: regular rate Rhythm: regular rhythm Heart sounds: S1 normal heart sound present and S2 normal heart sound present GI Inspection: Yes normal to inspection Palpation (GI): Soft to palpation and nontender Auscultation: normal bowel sounds Skin General skin exam: no rashes or lesions noted Neuro General: patient oriented x3, no focal motor deficits and No confusion Extrem General: Yes full ROM Psych Appearance: grossly normal Assessment and Plan Assessment & Plan (1) Physical exam: Code(s): Z00.00 - Encounter for general adult medical examination without abnormal findings Plan: Repeat in a year. Review Patient declined Pneumococcal Vaccine: 04/15/24 Coding Level of Care Code Est Pt Prev Care >65y(97153) Diagnoses Physical exam Z00.00 Time Spent (min) 32
== END 2024-04-15 08:22 | disposition home or self-care (01) ==
PROVIDERS: PCP Internal Medicine; Visit Provider Internal Medicine
DX: Z00.00 Encounter for general adult medical examination without abnormal findings (principal)
CPT/HCPCS: 99397

== ENCOUNTER 2024-04-15 08:47 | Outpatient (REF) | payer BC, SELFPAY ==
[2024-04-15 09:57] LABS: Alanine Aminotransferase 97 U/L (0-40); Albumin Level 4.4 g/dL (3.5-5.0); Alkaline Phosphatase 52 U/L (39-117); Anion Gap 11 (12-20); Aspartate Amino Transferase 50 U/L (5-37); Bilirubin Total 0.5 mg/dL (0.0-1.0); Blood Urea Nitrogen 16 mg/dL (9-16); Calcium 9.5 mg/dL (8.4-10.2); Carbon Dioxide 24 mmol/L (22-29); Chloride 109 mmol/L (96-108); Cholesterol 151 mg/dL (<200); Estimated Glomerular Filt Rate > 60; Glucose Fasting 108 mg/dL (60-99); HDL Cholesterol 46 mg/dL (>40); LDL Cholesterol Calculated 90 mg/dL (<100); Magnesium 2.3 mg/dL (1.6-2.6); Potassium 4.3 mmol/L (3.3-5.1); Sodium 140 mmol/L (135-145); Triglycerides 76 mg/dL (<150)
== END 2024-04-15 08:48 | disposition home or self-care (01) ==
LOC: HO.LAB 08:47
PROVIDERS: PCP Internal Medicine; Visit Provider Internal Medicine
DX: E78.5 Hyperlipidemia, unspecified (principal); R25.2 Cramp and spasm; E78.00 Pure hypercholesterolemia, unspecified
CPT/HCPCS: 36415; 80053; 80061; 83735

== ENCOUNTER 2024-05-23 13:13 | Outpatient (REF) | payer BC, SELFPAY ==
[2024-05-23 15:22] LABS: Magnesium 2.1 mg/dL (1.6-2.6)
[2024-05-23 15:48] LABS: Prostate Specific Antigen 1.29 ng/mL (<0.05-4.0)
== END 2024-05-23 13:14 | disposition home or self-care (01) ==
LOC: HO.WFDLDS 13:13
PROVIDERS: Referring Provider Nurse Practitioner Family; Visit Provider Internal Medicine
DX: K21.9 Gastro-esophageal reflux disease without esophagitis (principal); R68.89 Other general symptoms and signs; Z12.5 Encounter for screening for malignant neoplasm of prostate
CPT/HCPCS: 36415; 83735; 84153

== ENCOUNTER 2024-05-27 08:15 | Outpatient (AMB) | payer BC, SELFPAY ==
--- NOTE | 2024-05-27 08:33 | A.OFFVIS_ITS ---
Intake Visit Reasons: 1y/PSA/PVR Intake Note: Patient presents today for follow up visit on history of abnormal CHAVO and BPH Urology Medications: none Blood Thinner: none PVR: 0ml's Clinical Counselor Required: No Accompanied by: Self / Same As Patient Allergies erythromycin base Allergy (Severe, Verified 05/27/24 08:54) Eye Swelling Medication List - Last Reconciled 05/27/24 by MICHELE Huff- cholecalciferol (vitamin D3) 25 mcg PO DAILY magnesium oxide 500 mg PO DAILY pantoprazole 40 mg PO DAILY simvastatin 20 mg PO BEDTIME 90 days HPI Comments Details: Adam is a very pleasant 68-year-old male patient of Dr. Stewart. He has a PMH of GERD. He presents to the office today for follow-up. In discussion with the patient today reports to be doing and feeling well. He reports since his last office visit here approximately a year ago he has been doing and feeling well. He denies any bothersome urinary issues or concerns. He reports to be happy with his current voiding parameters. Recent PSA results reviewed with the patient today as noted and trended below. He has a history of previous prostate biopsy for an abnormal CHAVO with a previous urology in [place] that he reports was negative. He otherwise denies urinary urgency, urinary frequency, incontinence, nocturia, hematuria, dysuria, foul smelling urine, changes to urinary stream, flank pain, fever, and or chills. CHAVO offered however deferred. In office urinalysis results reviewed with the patient today. PVR 0 mL. PSAs: 04/09 1.0, 06/11 1.3 PFSH Surgical History History of tonsillectomy History of surgery Family History Mother Cancer Father No problems noted. Family/Other Substance use disorder Mental health disorder Maternal Uncle Lung cancer Social History Housing: House Alcohol intake: current Alcohol intake frequency: a few times a week Alcohol type: beer, wine and hard liquor Patient Tobacco Use Status: Former Tobacco user Tobacco use type: Cigarette e-Cigarette/Vaping Use: Never Used Second Hand Smoke Exposure: No service: Yes Current occupational status: retired Cognitive needs: No Hearing needs: No Vision needs: No Review of Systems Const All systems reviewed & are unremarkable except as noted in HPI and below Reports no additional complaints Eyes Reports no additional complaints ENT Reports no additional complaints Card Reports no additional complaints Resp Reports no additional complaints GI Reports as per HPI Reports as per HPI Musc Reports no additional complaints Neuro Reports no additional complaints Psych Reports no additional complaints Endo Reports no additional complaints Guillermo/Lymph Reports no additional complaints Aller/Immun Reports no additional complaints Physical Exam Const General: cooperative, healthy appearing, comfortable, no acute distress, well developed, alert and awake Orientation/consciousness: patient oriented x3 Limitations: no limitations HEENT Head: Yes normal to inspection, Yes normocephalic and Yes atraumatic Ears: hearing grossly normal bilaterally Eyes General: appearance normal, both eyes and all related structures Neck Neck: Yes normal visual inspection and Yes trachea midline Chest Chest palpation & inspection: normal inspection of the chest Resp Effort & Inspection: normal respiratory effort and able to speak in complete sentences Cardio Rate: regular rate GI Inspection: Yes normal to inspection General: Yes no CVA tenderness Back/Spine/Pelvis Back: no CVA tenderness Skin General skin exam: no rashes or lesions noted Neuro General: patient oriented x3 Extrem General: Yes normal to inspection Psych Appearance: grossly normal and well kempt Mental Status: mental status grossly normal Speech and movement: Normal speech and movement present and Clear speech present Affect: normal affect Attitude: cooperative Thought process: Normal thought process present Thought content: Normal thought content present Insight: Good insight present (Psych) Judgement: Good judgement present (Psych) Office Procedures Post Void Residual Post Residual Void Post Void Residual (PVR): [id number] Void Residual by ultrasound Results AMB Urinalysis, Automated UA Leukoctes 0 Garry/uL Last Edit by Haleigh Patel on 05/27/24 08:44 UA Nitrite Last Edit by Haleigh Patel on 05/27/24 08:44 UA Urobilinogen 0.2 mg/dL Last Edit by Haeligh Patel on 05/27/24 08:44 UA Protein 0 mg/dL Last Edit by Haleigh Patel on 05/27/24 08:44 UA pH 7.0 Last Edit by Haleigh Patel on 05/27/24 08:44 UA Blood 0 Eric/uL Last Edit by Haleigh Patel on 05/27/24 08:44 UA Specific [place] 1.015 Last Edit by Sundayalonsosabrina Ariasnishant on 05/27/24 08:44 UA Ketone Negative Last Edit by Haleigh Juananishant on 05/27/24 08:44 UA Bilirubin 0 mg/dL Last Edit by Haleigh Juananishant on 05/27/24 08:44 UA Glucose 0 mg/dL Last Edit by Haleigh Juananishant on 05/27/24 08:44 Results Reviewed Results Reviewed: Laboratory Last Values Urine pH (Auto) 7.0 05/27/24 08:43 Specific [place] (Auto) 1.015 05/27/24 08:43 Urine Protein (Auto) 0 mg/dL 05/27/24 08:43 Glucose (UA)(Auto) 0 mg/dL 05/27/24 08:43 Urine Ketones (Auto) Negative 05/27/24 08:43 Urine Blood (Auto) 0 Eric/uL 05/27/24 08:43 Urine Bilirubin (Auto) 0 mg/dL 05/27/24 08:43 Urine Urobilinogen (Auto) 0.2 mg/dL 05/27/24 08:43 Leukocyte Esterase (Auto) 0 Garry/uL 05/27/24 08:43 Assessment & Plan Assessment & Plan (1) Abnormal digital rectal exam: Code(s): R68.89 - Other general symptoms and signs Category: Medical Plan In office urinalysis results reviewed with the patient today; as noted above. PVR 0 mL. Patient denies any bothersome urinary issues or concerns at this time. Recent PSA results reviewed with the patient today; as noted above. CHAVO offered however deferred. Will obtain PSA in 1 year. Follow-up in 1 year with lab to be completed prior; or sooner with any issues, concerns, and or questions. Orders: Orders AMB Urinalysis Automated Today Z13.9 - Encounter for screening, unspecified Prostate Specific Antigen 1 Year N40.0 - Benign prostatic hyperplasia without lower urinary tract symptoms, R68.89 - Other general symptoms and signs AMB Post Void Residual by ultrasound Today N40.0 - Benign prostatic hyperplasia without lower urinary tract symptoms Patient Instructions: The patient had an opportunity to ask questions regarding the treatment plan. All questions were answered. Physical exam, labs, and imaging were discussed and reviewed in detail. As well as risks, benefits, and discussion of treatment cho ices. No major barriers to understanding were identified. The patient expressed understanding and agreement with the above treatment plan. The patient was made aware they should contact our office by phone for worsening of their current condition, the appearance of new symptoms, or with any questions or concerns. Compliance is encouraged with any medications and follow up testing that is ordered. It is a privilege to be allowed the opportunity to participate in? your urological care.? Again, if you have any questions or concerns If you have any questions or concerns please do not hesitate to contact me. The office is [phone]. This note is constructed using voice recognition software. While every effort has been made to ensure accuracy amortization clerk errors may have been included. Yours sincerely, LENARD Huff Coding Level of Care Code Est Pt Level 3 (17202) Diagnoses Abnormal digital rectal exam R68.89 CPT Codes Post Residual Void - PVR CPT Code: 88664-Umqn Void Residual by ultrasound ([id number])
== END 2024-05-27 08:52 | disposition home or self-care (01) ==
PROVIDERS: PCP Internal Medicine; Visit Provider Nurse Practitioner Family
DX: Z13.9 Encounter for screening, unspecified (principal); R68.89 Other general symptoms and signs
CPT/HCPCS: 99213

== ENCOUNTER → 2024-05-27 08:15 | Outpatient (BNVA) | payer BC, SELFPAY | PROVIDERS: PCP Internal Medicine; Visit Provider Nurse Practitioner Family | DX: N40.0 Benign prostatic hyperplasia without lower urinary tract symptoms (principal); R68.89 Other general symptoms and signs | CPT/HCPCS: 51798; 81003 ==

== ENCOUNTER 2024-06-26 11:03 | Outpatient (REF) | payer BC, SELFPAY ==
[2024-06-26 12:29] LABS: Hematocrit 50.7 % (42.0-52.0); Hemoglobin 17.3 g/dl (14.0-18.0); Mean Corpuscular HGB Conc 34.1 g/dl (31.0-36.0); Mean Corpuscular Hemoglobin 30.5 pg (27.0-33.0); Mean Corpuscular Volume 89.3 fL (80.0-98.0); Mean Platelet Volume 10.5 fL (9.4-12.4); Platelet Count 230 X10*3/uL (160-400); Red Blood Count 5.68 X10*6/uL (4.60-5.80); Red Cell Distribution Width 13.1 % (11.0-16.0); White Blood Count 6.2 X10*3/uL (4.8-10.8)
[2024-06-26 12:39] LABS: Estimated Average Glucose 123 mg/dL; Hemoglobin A1C 176.6032 umol/L; Hemoglobin A1c % 5.9 % (<6.0); Total Hemoglobin (HGBA1C) 4346.0538 umol/L
[2024-06-26 12:45] LABS: Prothrombin Time 11.2 SEC (10.9-12.4)
[2024-06-26 13:05] LABS: Alanine Aminotransferase 92 U/L (0-40); Albumin Level 4.7 g/dL (3.5-5.0); Alkaline Phosphatase 50 U/L (39-117); Anion Gap 13 (12-20); Aspartate Amino Transferase 51 U/L (5-37); Bilirubin Direct 0.2 mg/dL (0.0-0.5); Bilirubin Total 0.4 mg/dL (0.0-1.0); Blood Urea Nitrogen 13 mg/dL (9-16); Calcium 9.4 mg/dL (8.4-10.2); Carbon Dioxide 24 mmol/L (22-29); Chloride 109 mmol/L (96-108); Estimated Glomerular Filt Rate > 60; Gamma Glutamyl Transpeptidase 73 U/L (11-51); Glucose Random 101 mg/dL (60-115); Iron 113 mcg/dL (45-160); Percent Iron Saturation 39 % (15-50); Potassium 4.1 mmol/L (3.3-5.1); Sodium 142 mmol/L (135-145); Total Iron Binding Capacity 292 mcg/dL (228-428); Total Protein 7.5 g/dL (6.5-8.0); Unsaturated Iron Binding 179 ug/dL
[2024-06-26 13:19] LABS: Hepatitis A Antibody IgG REACTIVE (Nonreactive); ~Hepatitis A Antibody IgG 11.42 S/CO (0.00-0.99)
[2024-06-26 13:21] LABS: HBS Num1 0.45 mIU/mL (0-7.99); HBc Num1 0.11 S/CO (0.00-0.79); HBsAGNum1 0.33 S/CO (0.00-0.99); HIV AB/AG Nonreactive (Nonreactive); HIV Num 1 0.06 S/CO (0.00-0.99); Hepatitis B Core Antibody Nonreactive (Nonreactive); Hepatitis B Surface Antigen Negative (Negative); ~HepC Num1 0.12 S/CO (0.00-0.79); ~Hepatitis B Surface Antibody NONREACTIVE (Nonreactive); ~Hepatitis C Antibody Nonreactive (Nonreactive)
[2024-06-26 13:23] LABS: Ferritin 340 ng/mL (20-250); TSH reflex Free T4 2.04 uIU/mL (0.32-4.0)
[2024-06-28 02:59] LABS: Immunoglobulin A 323 mg/dL (70-320); Immunoglobulin G 857 mg/dL (600-1540)
[2024-06-28 13:58] LABS: Transglutaminase IgA <1.0 U/mL
[2024-06-29 23:24] LABS: Smooth Muscle Antibody <20 U (<20)
[2024-07-02 06:54] LABS: Liver Kidney Microsomal Ab <=20.0 U (<=20.0)
[2024-07-02 10:18] LABS: Mitochondrial Antibodies NEGATIVE (NEGATIVE)
[2024-07-02 12:25] LABS: Phosphatidylethanol 16:0-18:1 123 (H); Phosphatidylethanol 16:0-18:2 116 (H)
== END 2024-06-26 11:04 | disposition home or self-care (01) ==
LOC: HO.LAB 11:03
PROVIDERS: PCP Internal Medicine; Visit Provider Internal Medicine
DX: R74.01 Elevation of levels of liver transaminase levels (principal); Z13.1 Encounter for screening for diabetes mellitus
CPT/HCPCS: 36415; 80053; 80321; 81256; 82248; 82728; 82784; 82977; 83036; 83540; 84443; 85027; 85610; 86015; 86364; 86376; 86381; 86704; 86706; 86708; 86803; 87340; 87389

== ENCOUNTER 2024-06-26 11:03 | Outpatient (AMB) | payer BC, SELFPAY ==
[2024-06-26 11:04] VITALS: BP 135/79; PULSE 62; BMI 26.9
--- NOTE | 2024-06-26 11:04 | MHC.OFFVIS ---
Vital Signs 06/26/24 11:04 Height 5 ft 10 in Weight 187 lb 6.287 oz BMI 26.9 BP 135/79 Blood Pressure Location Lt brachial Position Sitting Pulse 62 Intake Visit Reasons: Elevated lab values (ALT/AST) Intake Note: Adam presents in the office as a new patient for elevated LFTs. CC: He states that he is here due to his labs and not having any GI concerns. 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 Pt reports tht first found out abnormal liver function test almost 30 years ago. At that time was told it was due mother's genes causing high iron - Appears to have HH as pt also reports having phlebotomy for almost a year after which it was stopped due to normal iron level. Was being seen [facility] in [facility]. Pt drinks occ on weekend - 2 drinks of beer or gin. Prev used to drink heavily in his 20s and 30s. Ex smoker 3PPD, quit 15 y ago. No fam hx of cirrhosis. Mother carried the gene per his report. [facility] Surgical History (Updated 06/26/24 @ 11:14 by PASCALE Wyatt) History of esophagogastroduodenoscopy (EGD) Hx of colonoscopy History of tonsillectomy History of surgery Family History Mother Cancer Father No problems noted. Family/Other Substance use disorder Mental health disorder Maternal Uncle Lung cancer Social History Housing: House Alcohol intake: current Alcohol intake frequency: a few times a week Alcohol type: beer, wine and hard liquor Patient Tobacco Use Status: Former Tobacco user Tobacco use type: Cigarette e-Cigarette/Vaping Use: Never Used Second Hand Smoke Exposure: No service: Yes Current occupational status: retired Cognitive needs: No Hearing needs: No Vision needs: No Review of Systems Const All systems reviewed & are unremarkable except as noted in HPI and below Physical Exam Vital Signs: Last Vital Signs Pulse 62 06/26/24 11:04 BP 135/79 06/26/24 11:04 BMI result Body Mass Index 26.9 No apparent distress Nonicteric Abdomen soft, nondistended Alert and oriented x3, normal gait Assessment & Plan Assessment & Plan (1) Transaminitis: Code(s): R74.01 - Elevation of levels of liver transaminase levels Category: Medical (2) Iron overload: Code(s): E83.19 - Other disorders of iron metabolism Category: Medical Plan Reports a history of hemochromatosis diagnosis in the remote past. Will get blood work done to confirm this. We will also obtain iron profile to see if needs further sessions for phlebotomy. If hemochromatosis confirmed, will likely need an echo as well as endocrinology referral. Orders: Orders Comprehensive Met. Panel Today R74.01 - Elevation of levels of liver transaminase levels Ferritin Today R74.01 - Elevation of levels of liver transaminase levels Gamma Glutamyl Transpeptidase Today R74.01 - Elevation of levels of liver transaminase levels Hepatitis B Surface Antibody Today R74.01 - Elevation of levels of liver transaminase levels Hepatitis B Surface Antigen Today R74.01 - Elevation of levels of liver transaminase levels Hepatitis C Antibody Today R74.01 - Elevation of levels of liver transaminase levels HIV Ab/Ag Today R74.01 - Elevation of levels of liver transaminase levels Immunoglobulin A Today R74.01 - Elevation of levels of liver transaminase levels Immunoglobulin G Today R74.01 - Elevation of levels of liver transaminase levels Liver Kidney Microsomal Ab Today R74.01 - Elevation of levels of liver transaminase levels Liver Panel Today R74.01 - Elevation of levels of liver transaminase levels Hemoglobin A1c Today R74.01 - Elevation of levels of liver transaminase levels Mitochondrial Antibody Today R74.01 - Elevation of levels of liver transaminase levels Phosphatidylethanol, Blood Today R74.01 - Elevation of levels of liver transaminase levels Prothrombin Time INR Today R74.01 - Elevation of levels of liver transaminase levels Smooth Muscle Antibody Today R74.01 - Elevation of levels of liver transaminase levels US abdomen complete Today R74.01 - Elevation of levels of liver transaminase levels DNA Analysis Hemochromatosis Today R74.01 - Elevation of levels of liver transaminase levels Complete Blood Count no Diff Today R74.01 - Elevation of levels of liver transaminase levels Hepatitis A IgG Today R74.01 - Elevation of levels of liver transaminase levels Hepatitis B Core Antibody Today R74.01 - Elevation of levels of liver transaminase levels IRON PROFILE Today R74.01 - Elevation of levels of liver transaminase levels Transglutaminase IgA Today R74.01 - Elevation of levels of liver transaminase levels TSH reflex Free T4 Today R74.01 - Elevation of levels of liver transaminase levels Coding Level of Care Code New Pt Level 4 (46994) Diagnoses Transaminitis R74.01 Iron overload E83.19
== END 2024-06-26 12:30 | disposition home or self-care (01) ==
PROVIDERS: PCP Internal Medicine; Visit Provider Internal Medicine
DX: R74.01 Elevation of levels of liver transaminase levels (principal); E83.19 Other disorders of iron metabolism
CPT/HCPCS: 99204

== ENCOUNTER 2024-07-11 07:45 | Outpatient (REF) | payer BC, SELFPAY ==
--- NOTE | ~2024-07-11 | US_ITS ---
EXAMINATION: US ABDOMEN COMPLETE CLINICAL INFORMATION: Elevated liver transaminase. COMPARISON: None available. TECHNIQUE: Real-time imaging of the abdominal viscera. FINDINGS: PANCREAS: The visualized portions of the pancreas are unremarkable but a large portion of the gland is obscured by bowel gas. ABDOMINAL AORTA: The proximal, mid, and distal segments are normal in caliber. Atherosclerotic changes are present. INFERIOR VENA CAVA: Visualized portions are normal. LIVER: The liver is normal in size. The liver contour is normal. There is diffuse increased liver parenchymal echogenicity, consistent with hepatic steatosis. No focal hepatic lesion. There is no intrahepatic biliary duct dilatation seen. GALLBLADDER: Normal. The gallbladder is physiologically distended without evidence of stones, sludge, polyps, wall thickening or pericholecystic fluid. COMMON BILE DUCT: Normal in caliber measuring 0.3 cm in diameter. RIGHT KIDNEY: Normal. No hydronephrosis. No renal calculi or focal parenchymal lesions. The kidney measures 11.3 cm in maximum dimension. LEFT KIDNEY: Normal. No hydronephrosis. No renal calculi or focal parenchymal lesions. The kidney measures 10.9 cm in maximum dimension. SPLEEN: The spleen appears normal measuring 8.4 cm. FREE FLUID: None. US/US abdomen complete IMPRESSION: Hepatic steatosis. Electronically signed by: Narciso Marin MD 07/27/2024 03:00 PM [facility] [place]
== END 2024-07-11 07:46 | disposition home or self-care (01) ==
LOC: HO.US 07:45
PROVIDERS: PCP Internal Medicine; Visit Provider Internal Medicine
DX: R74.01 Elevation of levels of liver transaminase levels (principal)
CPT/HCPCS: 76700

== ENCOUNTER 2024-08-19 10:28 | Outpatient (AMB) | payer BC, SELFPAY ==
--- NOTE | 2024-08-19 10:54 | MHC.OFFVIS ---
Vital Signs 08/19/24 10:56 Height 5 ft 10 in Weight 187 lb 6.287 oz BMI 26.9 BP 132/88 Blood Pressure Location Lt brachial Position Sitting Pulse 51 Intake Visit Reasons: 6 wks f/u LFTs Intake Note: Adam presents in the office as a 6 weeks follow up LFts. CC: He states that this is just a follow up - no concerns at this time. 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 06/26/24: Pt reports tht first found out abnormal liver function test almost 30 years ago. At that time was told it was due mother's genes causing high iron - Appears to have HH as pt also reports having phlebotomy for almost a year after which it was stopped due to normal iron level. Was being seen [facility] in [facility]. Pt drinks occ on weekend - 2 drinks of beer or gin. Prev used to drink heavily in his 20s and 30s. Ex smoker 3PPD, quit 15 y ago. No fam hx of cirrhosis. Mother carried the gene per his report. 08/19/24: Here for follow up. Labs and US reviewed. 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 Fib 4 is 1.62 based on most recent testing i.e indeterminate or advanced fibrosis. Pt himself does not have DM or uncontrolled HLD. Has prev hx of heavy etOH use > 30 years ago. Had a cologuard last month which was negative. [facility] Surgical History History of esophagogastroduodenoscopy (EGD) Hx of colonoscopy History of tonsillectomy History of surgery Family History Mother Cancer Father No problems noted. Family/Other Substance use disorder Mental health disorder Maternal Uncle Lung cancer Social History Housing: House Alcohol intake: current Alcohol intake frequency: a few times a week Alcohol type: beer, wine and hard liquor Patient Tobacco Use Status: Former Tobacco user Tobacco use type: Cigarette e-Cigarette/Vaping Use: Never Used Second Hand Smoke Exposure: No service: Yes Current occupational status: retired Cognitive needs: No Hearing needs: No Vision needs: No Review of Systems Const All systems reviewed & are unremarkable except as noted in HPI and below Physical Exam Vital Signs: Last Vital Signs Pulse 51 08/19/24 10:56 BP 132/88 08/19/24 10:56 BMI result Body Mass Index 26.9 No apparent distress Nonicteric Abdomen soft, nondistended Alert and oriented x3, normal gait Results Reviewed Results Reviewed: 07/11/24: LIVER: The liver is normal in size. The liver contour is normal. There is diffuse increased liver parenchymal echogenicity, consistent with hepatic steatosis. No focal hepatic lesion. There is no intrahepatic biliary duct dilatation seen. GALLBLADDER: Normal. The gallbladder is physiologically distended without evidence of stones, sludge, polyps, wall thickening or pericholecystic fluid. COMMON BILE DUCT: Normal in caliber measuring 0.3 cm in diameter. 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 He does have fatty liver likely 2/2 history of etOH use and now non-etOH metabolic factors. Fib 4 is 1.62. Plan: - Control of metabolic factors - Avoid alcohol - Elastography to be ordered in 6 months from prev imaging. Orders in - Follow up in 6 months with updated labs. Reminder for labs in. Orders: Orders US abdomen comp w elastography 4 Months R74.01 - Elevation of levels of liver transaminase levels Comprehensive Met. Panel 6 Months R74.01 - Elevation of levels of liver transaminase levels Prothrombin Time INR 6 Months R74.01 - Elevation of levels of liver transaminase levels Complete Blood Count no Diff 6 Months R74.01 - Elevation of levels of liver transaminase levels Coding Level of Care Code Est Pt Level 4 (11253) Diagnoses Transaminitis R74.01 MetALD K76.0; F10.90
[2024-08-19 10:56] VITALS: BP 132/88; PULSE 51; BMI 26.9
== END 2024-08-19 11:49 | disposition home or self-care (01) ==
PROVIDERS: PCP Internal Medicine; Visit Provider Internal Medicine
DX: R74.01 Elevation of levels of liver transaminase levels (principal); K76.0 Fatty (change of) liver, not elsewhere classified; F10.90 Alcohol use, unspecified, uncomplicated
CPT/HCPCS: 99214

== ENCOUNTER → 2024-08-19 10:28 | Outpatient (BNVA) | payer BC, SELFPAY | PROVIDERS: PCP Internal Medicine; Visit Provider Internal Medicine ==

== ENCOUNTER 2024-12-06 08:18 | Outpatient (REF) | payer BC, SELFPAY ==
--- NOTE | ~2024-12-06 | US_ITS ---
EXAMINATION: US ABDOMEN COMPLETE WITH LIVER ELASTOGRAPHY HISTORY: R74.01 - Elevation of levels of liver transaminase levels TECHNIQUE: Real-time grayscale ultrasound imaging of the abdomen was performed and images were reviewed. COMPARISON: Comparison is made with the prior examination dated 07/11/2024. FINDINGS: Liver: The right lobe of the liver measures 17.0 cm in size. The left lobe of the liver measures 9.2 cm in size. The liver demonstrates increased echotexture, consistent with steatosis. No focal mass or intrahepatic biliary ductal dilatation is identified. There is normal hepatopedal flow in the portal vein. Ultrasound elastography of the liver was performed with 10 separate measurements of the liver parenchyma with the patient in the supine position. Measurements were obtained approximately 2 cm below Sb's capsule and perpendicular to the capsule. Images are of satisfactory quality. The median shear wave velocity is 1.72 m/s. The interquartile range/median (IQR/median) is 0.08. Gallbladder and biliary tree: The gallbladder is unremarkable, without evidence of calculi, wall thickening, or pericholecystic fluid. There is no sonographic Ceron sign. The common bile duct is normal in caliber measuring 4 mm. Kidneys: The right kidney measures 11.7 cm in length. The left kidney measures 11.8 cm in length. The kidneys are unremarkable, without evidence of masses, hydronephrosis, or calculi. Pancreas: The pancreatic head, neck, and body are unremarkable. The pancreatic tail is obscured by bowel gas. Spleen: The spleen is normal in size and contour, measuring 8.8 cm in length. Abdominal aorta and inferior vena cava: The visualized portions of the abdominal aorta and inferior vena cava are normal in caliber. There is no free fluid in the abdomen. US/US abdomen comp w elastography IMPRESSION: Hepatomegaly and hepatic steatosis. The median shear wave velocity in the liver is 1.72 m/s, corresponding to a median liver stiffness of 9.11 kPa. The IQR/median value is 0.08. This is indicative of a quality data set. Findings are indicative of a high elastography value suggestive of compensated advanced chronic liver disease. REFERENCE: Society of Radiologists in Ultrasound Liver Stiffness Thresholds (2020): LIVER STIFFNESS THRESHOLDS: *Shear wave velocity less than 1.3 m/s (Liver Stiffness equal or less than 5 kPa): High probability of being normal. *Shear wave velocity less than 1.7 m/s (Liver Stiffness less than 9 kPa): In the absence of other known clinical signs, rules out compensated advanced chronic liver disease. *Shear wave velocity between 1.7-2.1 m/s (Liver Stiffness 9-13 kPa): Suggestive of compensated advanced chronic liver disease but need further test for confirmation. *Shear wave velocity between 2.1-2.4 m/s (Liver Stiffness 13-17 kPa): Rules in compensated advanced chronic liver disease. *Shear wave velocity greater than 2.4 m/s (Liver Stiffness over 17 kPa): Suggestive of clinically significant portal hypertension. QUALITY OF DATA SET: *IQR/Median value equal or less than 0.15 implies a quality data set. *IQR/Median value over 0.15 implies a poor quality data set. SIGNIFICANT CHANGE FROM PRIOR EXAM: Significant change if liver stiffness measurement is 10% or greater from prior exam. OTHER CONSIDERATIONS: The stage of liver fibrosis may be overestimated in the setting of acute hepatitis, liver inflammation, elevated liver function tests, hepatic vascular congestion, obstructive cholestasis, non-fasting state, and infiltrative diseases such as amyloidosis and lymphoma. In some patients with NAFLD, the liver stiffness thresholds for compensated advanced chronic liver disease may be lower. In causes other than viral hepatitis and NAFLD, liver stiffness thresholds are not well established. Electronically signed by: Luke Loera MD 12/06/2024 10:00 AM EDT
== END 2024-12-06 08:19 | disposition home or self-care (01) ==
LOC: HO.US 08:18
PROVIDERS: PCP Internal Medicine; Visit Provider Internal Medicine
DX: R74.01 Elevation of levels of liver transaminase levels (principal)
CPT/HCPCS: 76700; 76981

== ENCOUNTER → 2024-12-06 08:20 | Outpatient (BNV) | payer BC, SELFPAY | PROVIDERS: PCP Internal Medicine; Visit Provider Radiology Diagnostic Radiology | DX: R74.01 Elevation of levels of liver transaminase levels (principal) | CPT/HCPCS: 76700; 76981 ==

== ENCOUNTER 2025-02-13 09:12 | Outpatient (REF) | payer BC, SELFPAY ==
[2025-02-13 12:11] LABS: Hematocrit 51.6 % (42.0-52.0); Hemoglobin 17.3 g/dl (14.0-18.0); Mean Corpuscular HGB Conc 33.5 g/dl (31.0-36.0); Mean Corpuscular Hemoglobin 30.2 pg (27.0-33.0); Mean Corpuscular Volume 90.1 fL (80.0-98.0); Mean Platelet Volume 10.8 fL (9.4-12.4); Platelet Count 242 X10*3/uL (160-400); Red Blood Count 5.73 X10*6/uL (4.60-5.80); Red Cell Distribution Width 13.3 % (11.0-16.0)
[2025-02-13 12:13] LABS: INTERNATIONAL NORM RATIO 0.9 (0.9-1.1); Prothrombin Time 10.7 SEC (10.9-12.4)
[2025-02-13 13:03] LABS: Alanine Aminotransferase 91 U/L (0-40); Albumin Level 4.8 g/dL (3.5-5.0); Alkaline Phosphatase 52 U/L (39-117); Anion Gap 13 (12-20); Aspartate Amino Transferase 51 U/L (5-37); Bilirubin Total 0.5 mg/dL (0.0-1.0); Blood Urea Nitrogen 14 mg/dL (9-16); Calcium 9.8 mg/dL (8.4-10.2); Carbon Dioxide 25 mmol/L (22-29); Chloride 109 mmol/L (96-108); Estimated Glomerular Filt Rate > 60; Glucose Random 106 mg/dL (60-115); Potassium 4.2 mmol/L (3.3-5.1); Sodium 143 mmol/L (135-145); Total Protein 7.5 g/dL (6.5-8.0)
== END 2025-02-13 09:13 | disposition home or self-care (01) ==
LOC: HO.WFDLDS 09:12
PROVIDERS: Visit Provider Internal Medicine
DX: R74.01 Elevation of levels of liver transaminase levels (principal)
CPT/HCPCS: 36415; 80053; 85027; 85610

== ENCOUNTER 2025-02-17 08:40 | Outpatient (AMB) | payer BC, SELFPAY ==
--- NOTE | 2025-02-17 08:44 | A.OFFVIS_ITS ---
Vital Signs 02/17/25 08:50 Height 5 ft 10 in Weight 190 lb BMI 27.3 BP 116/67 Blood Pressure Location Lt brachial Position Sitting Pulse 56 Pulse Oximetry (%) 94 Oxygen Delivery Method Room Air Intake Visit Reasons: 6 mo f/u Intake Note: Patient 6 month follow up for MetALD, lab and US results. Patient denies any GI issues for today visit. Component Engineer Required: No Accompanied by: Self / Same As Patient Allergies erythromycin base Allergy (Severe, Verified 02/17/25 08:46) Eye Swelling HPI Comments Details: 68 y.o M with PMH of GERD, BPH who is here for abnormal LFTs. 06/26/24: Pt reports tht first found out abnormal liver function test almost 30 years ago. At that time was told it was due mother's genes causing high iron - Appears to have HH as pt also reports having phlebotomy for almost a year after which it was stopped due to normal iron level. Was being seen [facility] in [facility]. Pt drinks occ on weekend - 2 drinks of beer or gin. Prev used to drink heavily in his 20s and 30s. Ex smoker 3PPD, quit 15 y ago. No fam hx of cirrhosis. Mother carried the gene per his report. 08/19/24: Here for follow up. Labs and US reviewed. 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 Fib 4 is 1.62 based on most recent testing i.e indeterminate or advanced fibrosis. Pt himself does not have DM or uncontrolled HLD. Has prev hx of heavy etOH use > 30 years ago. Had a cologuard last month which was negative. 11/2024: Elastography Hepatomegaly and hepatic steatosis. The median shear wave velocity in the liver is 1.72 m/s, corresponding to a median liver stiffness of 9.11 kPa. The IQR/median value is 0.08. This is indicative of a quality data set. Findings are indicative of a high elastography value suggestive of compensated advanced chronic liver disease. 02/17/25: Here for follow up. No abd pain, N,V, D. Only complaint is R hand middle finger is difficult to bend or sometimes get stuck in the bent position. Cont to drink 1-2 times a week. Weight is up by 3 lbs. Fib 4 is 1.57 based on most recent labs below. Laboratory Tests 02/13/25 09:13 WBC 6.0 Hgb 17.3 Hct 51.6 Plt Count 242 INR 0.9 Sodium 143 BUN 14 Creatinine 1.18 Total Bilirubin 0.5 AST 51 H ALT 91 H Alkaline Phosphatase 52 PFSH Surgical History History of esophagogastroduodenoscopy (EGD) Hx of colonoscopy History of tonsillectomy History of surgery Family History Mother Cancer Father No problems noted. Family/Other Substance use disorder Mental health disorder Maternal Uncle Lung cancer Social History Housing: House Alcohol intake: current Alcohol intake frequency: a few times a week Alcohol t ype: beer, wine and hard liquor Patient Tobacco Use Status: Former Tobacco user Tobacco use type: Cigarette e-Cigarette/Vaping Use: Never Used Second Hand Smoke Exposure: No service: Yes Current occupational status: retired Cognitive needs: No Hearing needs: No Vision needs: No Review of Systems Const All systems reviewed & are unremarkable except as noted in HPI and below Physical Exam Vital Signs: Last Vital Signs Pulse 56 02/17/25 08:50 BP 116/67 02/17/25 08:50 Pulse Ox 94 02/17/25 08:50 Oxygen Delivery Method Room Air 02/17/25 08:50 BMI result Body Mass Index 27.3 No apparent distress Nonicteric Abdomen soft, nondistended Alert and oriented x3, normal gait Assessment & Plan Assessment & Plan (1) Transaminitis: Code(s): R74.01 - Elevation of levels of liver transaminase levels Category: Medical (2) MetALD: Code(s): K76.0 - Fatty (change of) liver, not elsewhere classified; F10.90 - Alcohol use, unspecified, uncomplicated Category: Medical (3) Trigger finger of right hand: Code(s): M65.30 - Trigger finger, unspecified finger Category: Medical Plan 1. 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 Overall does NOT appear to have cirrhosis. He does have fatty liver likely 2/2 history of etOH use and now non-etOH metabolic factors. Again strongly counseled on etOH abstinence. Fib 4 improved from 1.62 to 1.57 but cont to be in high range. Plan: - Control of metabolic factors - Avoid alcohol - US Abd ordered to be done 05/2025 - Follow up in 6 months - if Fib 4 largely unchanged, can be discharged back to PCPs care 2. R hand 3rd digit exam consistent with tenosynovitis. Advising trigger finger splinting and ibuprofen 400 TID trial x 3 days. AVOID NURSING HOME NSAIDS due to liver disease. Will also refer to hand surgery for consideration of local corticosteroid inj vs surgical release. Follow up 6 m for liver disease Orders: Orders 2 US abdomen complete 3 Months F10.90 - Alcohol use, unspecified, uncomplicated, K76.0 - Fatty (change of) liver, not elsewhere classified Referrals Hand Surgery Referral M65.30 - Trigger finger, unspecified finger Coding Level of Care Code Est Pt Level 4 (51469) Complex EM visit Add On G2211 Diagnoses Transaminitis R74.01 MetALD K76.0; F10.90 Trigger finger of right hand M65.30
[2025-02-17 08:50] VITALS: BP 116/67; PULSE 56; O2SAT 94; BMI 27.3
== END 2025-02-17 09:26 | disposition home or self-care (01) ==
LOC: HO.HGI 08:40
PROVIDERS: PCP Internal Medicine; Visit Provider Internal Medicine
DX: R74.01 Elevation of levels of liver transaminase levels (principal); K76.0 Fatty (change of) liver, not elsewhere classified; F10.90 Alcohol use, unspecified, uncomplicated; M65.30 Trigger finger, unspecified finger
CPT/HCPCS: 99214

== ENCOUNTER → 2025-02-17 08:40 | Outpatient (BNVA) | payer BC, SELFPAY | PROVIDERS: PCP Internal Medicine; Visit Provider Internal Medicine ==

== ENCOUNTER 2025-03-26 07:51 | Outpatient (AMB) | payer BC, SELFPAY ==
--- NOTE | 2025-03-26 08:21 | MHC.OFFVIS ---
Intake Visit Reasons: New patient- Trigger finger, unspecified finger Intake Note: Adam is a 69 year old left hand dominant male who presents today as a new patient with complaints of Right Middle Finger Locking and Catching. He was advised to utilize splinting and Ibuprofen. Patient states that about a month is when his finger started to lock up, no numbness or tingling. Allergies erythromycin base Allergy (Severe, Verified 03/26/25 08:25) Eye Swelling PFSH Surgical History History of esophagogastroduodenoscopy (EGD) Hx of colonoscopy History of tonsillectomy History of surgery Family History Mother Cancer Father No problems noted. Family/Other Substance use disorder Mental health disorder Maternal Uncle Lung cancer Social History Housing: House Alcohol intake: current Alcohol intake frequency: a few times a week Alcohol type: beer, wine and hard liquor Patient Tobacco Use Status: Former Tobacco user Tobacco use type: Cigarette e-Cigarette/Vaping Use: Never Used Second Hand Smoke Exposure: No service: Yes Current occupational status: retired Cognitive needs: No Hearing needs: No Vision needs: No Assessment & Plan Assessment & Plan (1) Trigger finger of right hand: Code(s): M65.30 - Trigger finger, unspecified finger Category: Medical Plan History of Present Illness The patient is a 69-year-old male presenting with a locking sensation in the right middle finger. The issue primarily occurs in the morning, requiring physical manipulation to release the finger. The patient reports that the finger locks almost every time he closes his hand, indicating a significant impact on daily activities. The condition has been identified as a trigger finger, characterized by a swollen tendon that gets caught in the nicol system of the finger. The patient has no significant past medical history and denies any history of diabetes or use of blood-thinning medications. Review of Systems - Musculoskeletal: Reports locking sensation in the right middle finger, particularly in the morning. - Endocrine: Denies diabetes. Physical Exam - Musculoskeletal: Swelling of the tendon in the right middle finger observed during movement. - there is visible and palpable locking and catching of the right middle finger in a flexed position Results Plan The patient was presented with two treatment options for the trigger finger. The first option is a steroid injection, which can be administered in the office and has a 50% chance of providing permanent relief. The second option is a minor surgical procedure, which has a 98% chance of resolving the issue permanently. The patient expressed a preference for surgery to achieve permanent relief, despite having had successful steroid injections for other conditions in the past. The surgery will be performed under local anesthesia, with a recovery period of four weeks, during which the patient must avoid submerging the hand in water and refrain from heavy lifting. I educated the patient about the condition. I discussed both operative and nonoperative treatment options. The patient would like to proceed with surgery. The risks and benefits of operative treatment were discussed with the patient and the patient wishes to proceed with surgery. These risks include, but are not limited to, risk of damage to blood vessels, nerves, tendons, infection, recurrence, incomplete relief of preoperative symptoms, persistent pain, possible need for further surgery, and the risks associated with regional blocks and/or anesthesia. Plan is to take the patient to the operating room at some point in the next few weeks for the following procedures: 1. Right middle finger trigger release under local All of the preoperative paperwork including the consent was discussed today. All of the patient's questions were answered in the clinic today. The patient understands that they will be in contact with our surgical instrument mechanic to discuss scheduling their procedure. Patient denies diabetes, blood thinners, asthma, heart issues, lung issues, kidney issues, or current smoking. Discussion Notes I discussed with the patient the diagnosis of trigger finger and explained the treatment options available. The patient was informed about the steroid injection, which has a 50% success rate, and the surgical option, which offers a 98% success rate. We discussed the risks and benefits of each option, including the recovery process for surgery, which involves a four-week period of limited hand use. The patient decided to proceed with surgery for a more definitive resolution of the issue. Coding Level of Care Code New Pt Level 4 (84349) Diagnoses Trigger finger of right hand M65.30
== END 2025-03-26 08:57 | disposition home or self-care (01) ==
LOC: HO.HOS 07:52
PROVIDERS: PCP Internal Medicine
DX: M65.331 Trigger finger, right middle finger (principal)
CPT/HCPCS: 99204

== ENCOUNTER 2025-04-17 07:16 | Outpatient (AMB) | payer BC, SELFPAY ==
[2025-04-17 07:34] VITALS: BP 118/80; BMI 27.3
--- NOTE | 2025-04-17 07:34 | MHC.PC.OV ---
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: No Accompanied by: Self / Same As Patient Allergies erythromycin base Allergy (Severe, Verified 04/17/25 07:41) Eye Swelling Medication List - Last Reconciled 04/17/25 by Whitney Block MD cholecalciferol (vitamin D3) 25 mcg PO DAILY magnesium gluconate 180 mg PO DAILY pantoprazole 40 mg PO DAILY simvastatin 20 mg PO BEDTIME 90 days Tobacco use date assessed: 04/17/25 Fall risk assessment: No Falls in past year Last assessed Fall Risk: 04/17/25 Dental Screening Dental Screen Date: 04/17/25 Did you have a dental visit in the last 12 months?: Yes Did you have a dental problem in the last 6 months where you did not have access to dental care?: No Was dental information given to patient?: Patient has dentist HPI HPI Comments History of Present Illness Details The patient is a 69-year-old male presenting for a wellness visit and management of chronic conditions. The patient has a history of hereditary hemochromatosis, which has been managed with phlebotomies in the past. He reports elevated liver enzymes for over 30 years, attributed to transaminitis and fatty liver, as confirmed by ultrasound. The patient has been advised to abstain from alcohol to monitor liver enzyme levels, following a recommendation from his grinder operator. The patient is experiencing a trigger finger, which causes difficulty in releasing objects held in his hand. He is scheduled for surgery on April 21 to address this issue, as cortisone injections were deemed only 50% effective. The patient has declined pneumonia and tetanus vaccines during this visit. He has a history of elevated hemoglobin levels, which will be monitored with upcoming blood work. [facility] [place] Surgical History History of esophagogastroduodenoscopy (EGD) Hx of colonoscopy History of tonsillectomy History of surgery Family History Mother Cancer Father No problems noted. Family/Other Substance use disorder Mental health disorder Maternal Uncle Lung cancer Social History (Updated 04/17/25 @ 07:49 by Whitney Block MD) Housing: House Alcohol intake: former Patient Tobacco Use Status: Former Tobacco user Tobacco use type: Cigarette e-Cigarette/Vaping Use: Never Used Second Hand Smoke Exposure: No service: Yes Current occupational status: retired Cognitive needs: No Hearing needs: No Vision needs: No Questionnaire PHQ-9 Over the last 2 weeks, how often have you been bothered by any of the following problems? 1. Little interest or pleasure in doing things: not at all 2. Feeling down, depressed, or hopeless: not at all 3. Trouble falling or staying asleep, or sleeping too much: not at all 4. Feeling tired or having little energy: not at all 5. Poor appetite or overeating: not at all 6. Feeling bad about yourself - or that you are a failure or have let yourself or your family down: not at all 7. Trouble concentrating on things, such as reading the newspaper or watching television: not at all 8. Moving or speaking so slowly that other people could have noticed. Or the opposite - being so fidgety or restless that you have been moving around a lot more than usual: not at all 9. Thoughts that you would be better off or of hurting yourself in some way: not at all Total score: 0 Depression Screening Interpretation: Negative Depression Screening Done: Yes 51686 - PHQ-9 Billing: Yes Source: Developed by Drs. Luke Manriquez, Alana Vega, Arias Morales and colleagues, with an educational brittanie from [employer]. Thrive Questionnaire Date Thrive assessed: 04/10/25 I am a: Patient What is your living situation today?: I have a steady place to live Within the past 12 months, did the food you bought not last and you didn't have the money to get more?: Never true Within the past 12 months, did you worry whether your food would run out before you got money to buy more?: Never true Do you have trouble paying for medicines?: No Do you have trouble getting transportation to medical appointments?: No Do you have trouble paying your heating and electricity bill?: No Do you have trouble taking care of your child, family member or friend?: No Do you have trouble with day-to-day activities such as bathing, preparing meals, shopping, managing finances, etc.?: No Are you currently unemployed and looking for a job?: No Are you interested in more education?: No Please select the resources that you would like help with: None Currently or been in a relationship where the following occur: No concerns reported THRIVE Score: 0 AUDIT C Alcohol Use Questionnaire (AUDIT-C) 1. How often do you have a drink containing alcohol?: Never 2. How many drinks containing alcohol do you have on a typical day when you are drinking?: 1 or 2 3. How often do you have six or more drinks on one occasion?: Never Total Score: 0 Score Reviewed/Action Taken: No CIARA-7 AMB Questionnaire CIARA-7 Date CIARA - 7 assessed: 04/17/25 Feeling nervous, anxious, or on edge: 0 = Not at all Not being able to stop or control worryin = Not at all Worrying too much about different things: 0 = Not at all Trouble relaxin = Not at all Being so restless that it is hard to sit still: 0 = Not at all Becoming easily annoyed or irritable: 0 = Not at all Feeling afraid as if something awful might happen: 0 = Not at all Total CIARA-7 score (0-4 normal; 5-9 mild; 10-14 moderate; 15-21 severe): 0 Source: Developed by Drs. Luke Manriquez, Alana Vega, Arias Morales and colleagues, with an educational brittanie from [employer]. CIARA-7 Assessment Billing CIARA-7 Assessment Tool: CIARA-7 Assessment 51337 Review of Systems Const All systems reviewed & are unremarkable except as noted in HPI and below Card Denies chest pain at rest, Denies chest pain with activity, Denies edema, Denies irregular heart rhythm, Denies claudication, Denies dyspnea, Denies dyspnea on exertion, Denies orthopnea, Denies paroxysmal nocturnal dyspnea and Denies slow heart rate Resp Denies cough, Denies dyspnea and Denies dyspnea on exertion GI Denies abdominal pain, Denies change in bowel habits, Denies excessive flatus, Denies nausea and Denies vomiting Denies urinary hesitancy, Denies urinary incontinence and Denies urinary urgency Musc Denies abnormal gait, Denies atrophy, Denies deformity and Denies limited range of motion Skin/Breast Denies bleeding lesions, Denies changing lesions and Denies rash Neuro Denies abnormal gait, Denies behavioral changes and Denies lack of coordination Psych Denies behavioral changes Physical exam (Primary Care) Vital Signs: Last Vital Signs BP 118/80 04/17/25 07:34 BMI result Body Mass Index 27.3 Tobacco/Smoking Status: Tobacco use Status Tobacco use date assessed 04/17/25 04/17/25 07:42 Patient Tobacco Use Status Former Tobacco user 04/17/25 07:49 Tobacco use type Cigarette 04/17/25 07:49 e-Cigarette/Vaping Use Never Used 04/17/25 07:49 PHQ-9: PHQ-9 Score PHQ-9: Total score 0 04/17/25 07:56 Depression Screening Interpretation: Negative Thrive Assessment: Date of Thrive Assessment Date Thrive assessed 04/10/25 04/17/25 07:42 Currently or been in a relationship where the following occur: No concerns reported HENMT Head: Yes normal to inspection, Yes normocephalic and Yes atraumatic Ears: external ears normal Eyes General: appearance normal, both eyes and all related structures Eyelids: Yes eyelids normal Conjunctivae: conjunctivae normal Neck Neck: Yes normal visual inspection and Yes supple Resp Effort & Inspection: normal respiratory effort Auscultation: clear to auscultation bilaterally Cardio Jugular venous distension: no JVD Rate: regular rate Rhythm: regular rhythm Heart sounds: S1 normal heart sound present and S2 normal heart sound present GI Inspection: Yes normal to inspection Palpation (GI): Soft to palpation and nontender Auscultation: normal bowel sounds Skin General skin exam: no rashes or lesions noted Neuro General: no focal motor deficits Extrem General: Yes full ROM Psych Appearance: grossly normal Immunizations pneumoc 20-lisa conj-dip cr(PF) 0.5 mL IM syringe Performing Provider: Whitney Block MD [place] [facility] [place] [facility] Documented (not given) by: PASCALE Winston on 04/17/25 07:57 Reason Not Given: Patient Refused Boostrix Tdap 2.5 Lf unit-8 mcg-5 Lf/0.5 mL intramuscular syringe Performing Provider: Whitney Block MD [place] [facility] [place] [facility] Documented (not given) by: PASCALE Winston on 04/17/25 07:57 Reason Not Given: Patient Refused Coding Level of Care Code Est Pt Prev Care >65y(51667) Diagnoses Physical exam Z00. Transaminitis R74.01 Iron overload E83.19 Additional Codes CIARA-7 Assessment Billing - CIARA-7 Assessment Tool: CIARA-7 Assessment 18620 ([id number]) PHQ-9 - 53406 - PHQ-9 Billing: Yes ([id number]) Time Spent (min) 30 Assessment & Plan Assessment & Plan (1) Physical exam: Code(s): Z00.00 - Encounter for general adult medical examination without abnormal findings Category: Medical (2) Transaminitis: Code(s): R74.01 - Elevation of levels of liver transaminase levels Category: Medical (3) Iron overload: Code(s): E83.19 - Other disorders of iron metabolism Category: Medical Plan The patient will continue to monitor liver enzyme levels with abstinence from alcohol, as advised by the grinder operator. Blood work will be conducted to assess hemoglobin and iron levels, with potential referral to hematology if necessary. Surgical intervention for the trigger finger is scheduled for April 21, with the patient opting for surgery over cortisone injections due to higher efficacy. Preventative care measures include the decision to decline pneumonia and tetanus vaccines at this time. Patient was informed and verbally consented to the use of an ambient scribe for clinic note documentation during this visit. Orders: Orders Pneumococcal 20 Immunization Today Z23 - Encounter for immunization Complete Blood Count Auto Diff Today E83.19 - Other disorders of iron metabolism DNA Analysis Hemochromatosis Today E83.19 - Other disorders of iron metabolism TDaP Immunization Today Z23 - Encounter for immunization Lipid Panel Today E78.5 - Hyperlipidemia, unspecified Vitamin D 25-OH Total Today E55.9 - Vitamin D deficiency, unspecified IRON PROFILE Today E83.19 - Other disorders of iron metabolism Comprehensive [place]. Panel Fast Today Z00.00 - Encounter for general adult medical examination without abnormal findings
== END 2025-04-17 07:56 | disposition home or self-care (01) ==
LOC: HO.HMCH 07:17
PROVIDERS: PCP Internal Medicine; Visit Provider Internal Medicine
DX: Z00.00 Encounter for general adult medical examination without abnormal findings (principal); R74.01 Elevation of levels of liver transaminase levels; E83.19 Other disorders of iron metabolism; Z23 Encounter for immunization

== ENCOUNTER → 2025-04-17 07:16 | Outpatient (BNVA) | payer BC, SELFPAY | PROVIDERS: PCP Internal Medicine; Visit Provider Internal Medicine | DX: Z00.00 Encounter for general adult medical examination without abnormal findings (principal); E83.19 Other disorders of iron metabolism; E78.5 Hyperlipidemia, unspecified; Z23 Encounter for immunization | CPT/HCPCS: 90471; 90472; 96127 ==

== ENCOUNTER 2025-04-18 07:40 | Outpatient (REF) | payer BC, SELFPAY ==
[2025-04-18 12:15] LABS: MANUAL DIFF FLAG NO
[2025-04-18 12:17] LABS: Hematocrit 49.4 % (42.0-52.0); Hemoglobin 16.4 g/dl (14.0-18.0); Imm Gran Abs Auto 0.02 X10*3/uL (0.00-0.03); Imm Gran Pct Auto 0.4 % (0.0-0.4); Lymphocytes Absolute Auto 1.5 X10*3/uL (1.2-4.9); Mean Corpuscular HGB Conc 33.2 g/dl (31.0-36.0); Mean Corpuscular Hemoglobin 29.9 pg (27.0-33.0); Mean Corpuscular Volume 90.0 fL (80.0-98.0); NRBC Abs Auto 0.000 X10*3/uL (0.0-0.012); NRBC Pct Auto 0.0 /100WBC (0.0-0.2); Platelet Count 226 X10*3/uL (160-400); Red Blood Count 5.49 X10*6/uL (4.60-5.80); White Blood Count 5.6 X10*3/uL (4.8-10.8)
[2025-04-18 13:26] LABS: Alanine Aminotransferase 74 U/L (0-40); Albumin Level 4.3 g/dL (3.5-5.0); Alkaline Phosphatase 48 U/L (39-117); Anion Gap 10 (12-20); Aspartate Amino Transferase 43 U/L (5-37); Blood Urea Nitrogen 18 mg/dL (9-16); Calcium 8.7 mg/dL (8.4-10.2); Carbon Dioxide 25 mmol/L (22-29); Chloride 110 mmol/L (96-108); Cholesterol 132 mg/dL (<200); Estimated Glomerular Filt Rate 59; HDL Cholesterol 37 mg/dL (>40); Iron 102 mcg/dL (45-160); Percent Iron Saturation 39 % (15-50); Potassium 4.3 mmol/L (3.3-5.1); Sodium 141 mmol/L (135-145); Total Iron Binding Capacity 263 mcg/dL (228-428); Total Protein 6.8 g/dL (6.5-8.0); Triglycerides 95 mg/dL (<150); Unsaturated Iron Binding 161 ug/dL
== END 2025-04-18 07:41 | disposition home or self-care (01) ==
LOC: HO.WFDLDS 07:40
PROVIDERS: Visit Provider Internal Medicine
DX: Z00.00 Encounter for general adult medical examination without abnormal findings (principal); E78.5 Hyperlipidemia, unspecified; E55.9 Vitamin D deficiency, unspecified
CPT/HCPCS: 36415; 80053; 80061; 81256; 82306; 83540; 85025

== ENCOUNTER 2025-04-21 06:20 | Day surgery (SDC) | payer BC, SELFPAY ==
[2025-04-21 06:51] VITALS: BMI 27.4
[2025-04-21 06:57] VITALS: BP 146/65; PULSE 60; RESP 17; O2SAT 96
--- NOTE | 2025-04-21 07:55 | MHC.SHP ---
Pre-Procedural Eval Section A - 24 Hr Update-Section A only Date of Service: 04/21/25 The patient is an INPATIENT: No Changes since office visit: No Cold of Flu in the past 2 weeks, No New Medical Problems, No Changes in Medication and No Patient answered all questions The patient has been examined within 24 hours of the surgical procedure. The History & Physical has been completed within 30 days and I have reviewed it.: Yes Section B - Complete if H&P > 30 days Chief Complaint: Trigger finger, right middle finger Allergies: Allergies Allergy/AdvReac Type Severity Reaction Status Date / Time erythromycin base Allergy Severe Eye Verified 04/17/25 07:41 Swelling Plan Diagnosis/Plan: Unchanged I have reviewed the history and physical and performed a pertinent physical examination on my patient. No changes have occurred unless specified. Time Spent With Patient Time: Total time managing care of this patient today ____ minutes.
--- NOTE | 2025-04-21 07:55 | W.PM.OPN ---
Operative Note Operative Note Date of Service: 04/21/25 Narrative: Operative Note Preop diagnosis: 1. Right middle finger Trigger finger Postop diagnosis: Same Procedure: 1. Right middle finger A1 nicol release Surgeon: Deanna Dougherty MD Sueding And Buffing Machine Operator: None Anesthesia: local block using 1% lidocaine with epinephrine Findings: No locking or catching after A1 nicol release EBL: Less than 5 mL Tourniquet time: None Specimens: None Complications: None Disposition: Brought to recovery room in stable condition Plan: Follow-up for 10-14 days for wound check and suture removal Indications: The patient is 69 years old, with a right middle finger trigger finger that has been unresponsive to nonoperative management. The risks and benefits of operative treatment including but not limited to risk of damage to blood vessels, nerves, tendons, infection, persistent pain, persistent symptoms, recurrence or possible need for additional surgery were discussed with the patient and the patient wishes to proceed with surgery. Procedure: Once consent was obtained a local block was performed in the preop area using a combination of 1% lidocaine with epinephrine. The patient was then brought back to the operating suite and placed on the operative table in supine position. The right upper extremity was prepped and draped in a standard surgical fashion. Once assured that we had a good block, a 1.5 cm oblique incision was made centered over the A1 nicol of the right middle finger . The incision was made through the skin to the subcutaneous tissues using a #15 blade. Careful dissection was made down to the level of the A1 nicol using tenotomy scissors, with care being taken to protect the nearby neurovascular structures. A longitudinal incision was made in the A1 nicol 1st using a #15 blade, then using tenotomy scissors under direct visualization. The A1 nicol was noted to be thickened. Following our A1 nicol release, we no longer saw any locking or catching of the digit with flexion and extension. Once satisfied with our A1 nicol release the wound was copiously irrigated with normal saline and hemostasis was obtained with a brief period of local pressure. The skin edges were reapproximated with some 5.0 nylon suture material and a sterile dressing was applied. The patient appears to have tolerated the procedure well and with no complications. All digits were well vascularized at the conclusion of the case.
[2025-04-21 09:15] VITALS: BP 141/85; PULSE 57; RESP 16; O2SAT 95
== END 2025-04-21 09:16 | disposition home or self-care (01) ==
PROVIDERS: PCP Internal Medicine; Visit Provider Orthopaedic Surgery
PROC: (CPT 26055; principal; 2025-04-21 08:10)
DX: M65.331 Trigger finger, right middle finger (principal); Z88.1 Allergy status to other antibiotic agents; Z98.890 Other specified postprocedural states; Z87.891 Personal history of nicotine dependence
CPT/HCPCS: 26055; J0165; J2003

== ENCOUNTER → 2025-04-21 06:20 | Outpatient (BNV) | payer BC, SELFPAY | PROVIDERS: PCP Internal Medicine; Visit Provider Orthopaedic Surgery | DX: M65.331 Trigger finger, right middle finger (principal) | CPT/HCPCS: 26055 ==

== ENCOUNTER 2025-05-06 10:24 | Outpatient (AMB) | payer MEDICARE, SELFPAY ==
--- NOTE | 2025-05-06 10:40 | MHC.OFFVIS ---
Vital Signs 05/06/25 10:47 Height 5 ft 10 in Weight 190 lb BMI 27.3 Intake Visit Reasons: PO RT MF Trigger 04/21/25 AR Intake Note: Adam is a 69 year old right hand dominant male who presents today for post-operatively status post right middle trigger finger release, DOS: 04/21/25, by Dr. Dougherty. Patient reports he is doing well. Denies numbness, tingling, or finger locking. Sutures removed in office and steri strips applied. Allergies erythromycin base Allergy (Severe, Verified 05/06/25 10:47) Eye Swelling HPI HPI PO RT MF Trigger 04/21/25 AR: Details: Adam is a 69 year old right hand dominant male who presents today for post-operatively status post right middle trigger finger release, DOS: 04/21/25, by Dr. Dougherty. Patient reports he is doing well. Denies numbness, tingling, or finger locking. Sutures removed in office and steri strips applied. [facility] Medical History (Updated 04/21/25 @ 07:01 by Viky Tan RN) GERD (gastroesophageal reflux disease) Surgical History History of esophagogastroduodenoscopy (EGD) Hx of colonoscopy History of tonsillectomy History of surgery Family History Mother Cancer Father No problems noted. Family/Other Substance use disorder Mental health disorder Maternal Uncle Lung cancer Social History (Updated 04/17/25 @ 07:49 by Whitney Block MD) Housing: House Alcohol intake: former Patient Tobacco Use Status: Former Tobacco user Tobacco use type: Cigarette e-Cigarette/Vaping Use: Never Used Second Hand Smoke Exposure: No service: Yes Current occupational status: retired Cognitive needs: No Hearing needs: No Vision needs: No Review of Systems Const All systems reviewed & are unremarkable except as noted in HPI and below Physical Exam Vital Signs: BMI result Body Mass Index 27.3 Extrem Other: Patient is alert, oriented, and in no acute distress. Neuro: Normal sensation of the tips of all digits of the right hand at this time Vascular: Cap refill brisk Pain: No tenderness to palpation about the incision site over A1 nicol of right middle finger No pain with range of motion of the right hand ROM: No further locking and catching of the right middle finger noted Patient is able to flex and extend all digits of the right hand fully and without difficulty Skin: Well approximated and well healing incision site noted over the A1 nicol of the right middle finger No lacerations or abrasions. General: No ecchymosis, erythema, or evidence of infection. Psych: Appears grossly normal Affect normal Attitude cooperative Assessment & Plan Assessment & Plan (1) Trigger finger of right hand: Code(s): M65.30 - Trigger finger, unspecified finger Category: Medical Plan 1. Status post right middle finger trigger release DOS 04/21/2025 Patient appears to be recovering very well postoperatively Patient is educated about the typical recovery course Patient is educated that he should be doing no under water or particularly dirty activities for another week, no more than 2 lb in the right hand for the next 2 weeks No further acute follow-up indicated, as patient appears to be recovering very well Patient understands this is amenable to this plan Follow-up as needed Coding Level of Care Code Global (99606) Diagnoses Trigger finger of right hand M65.30
[2025-05-06 10:47] VITALS: BMI 27.3
== END 2025-05-06 11:00 | disposition home or self-care (01) ==
LOC: HO.HOS 10:25
PROVIDERS: PCP Internal Medicine
DX: M65.30 Trigger finger, unspecified finger (principal)
CPT/HCPCS: 99024

== ENCOUNTER → 2025-05-06 10:24 | Outpatient (BNVA) | payer MEDICARE, SELFPAY | PROVIDERS: PCP Internal Medicine | DX: Z47.89 Encounter for other orthopedic aftercare (principal) | CPT/HCPCS: 99212 ==

== ENCOUNTER 2025-05-21 07:39 | Outpatient (REF) | payer MEDICARE, SELFPAY ==
--- NOTE | ~2025-05-21 | US_ITS ---
EXAMINATION: US ABDOMEN COMPLETE CLINICAL INFORMATION: K 76.0. Fatty liver.. COMPARISON: December 06, 2024 TECHNIQUE: Real-time ultrasound of the abdomen using grayscale technique. FINDINGS: PANCREAS: No peripancreatic fluid collection. ABDOMINAL AORTA: Poor evaluation due to patient's body habitus. Calcified plaque. The proximal, mid, and distal segments are normal in caliber. INFERIOR VENA CAVA: Visualized portions are normal. LIVER: Liver measures 16 cm there are technologist. Coarse echotexture. No nodular surface. No gross solid or cystic lesion detected by the technologist. Main portal vein is patent with normal hepatopedal flow direction. No intrahepatic biliary ductal dilatation. GALLBLADDER: Fluid-filled and contracted. No pericholecystic fluid collection or gallbladder wall thickening. COMMON BILE DUCT: 4 mm. RIGHT KIDNEY: 11 cm. Normal echotexture. Normal renal cortical thickness. No hydronephrosis. No gross solid or cystic lesion detected. . LEFT KIDNEY: 12 cm. Normal echotexture. Normal renal cortical thickness. Probable renal parenchyma the right main the kidney. No hydronephrosis. No solid or cystic lesion detected.. SPLEEN: 9 cm. No focal lesion.. FREE FLUID: None. US/US abdomen complete IMPRESSION: Hepatomegaly, mild and steatosis. No cholelithiasis or choledocholithiasis. No hydronephrosis. No ascites.. Electronically signed by: Ed Crum MD 05/21/2025 08:32 AM EDT
[2025-05-21 10:07] LABS: Prostate Specific Antigen 2.33 ng/mL (<0.05-4.0)
== END 2025-05-21 07:40 | disposition home or self-care (01) ==
LOC: HO.US 07:39
PROVIDERS: Nurse Practitioner Family; PCP Internal Medicine; Visit Provider Internal Medicine
DX: K76.0 Fatty (change of) liver, not elsewhere classified (principal); F10.90 Alcohol use, unspecified, uncomplicated; R68.89 Other general symptoms and signs; N40.0 Benign prostatic hyperplasia without lower urinary tract symptoms; Z12.5 Encounter for screening for malignant neoplasm of prostate
CPT/HCPCS: 36415; 76700; 84153

== ENCOUNTER → 2025-05-21 07:41 | Outpatient (BNV) | payer MEDICARE, SELFPAY | PROVIDERS: PCP Internal Medicine; Visit Provider Radiology Diagnostic Radiology | DX: K76.0 Fatty (change of) liver, not elsewhere classified (principal) | CPT/HCPCS: 76700 ==

== ENCOUNTER 2025-05-27 08:16 | Outpatient (AMB) | payer BC, SELFPAY ==
--- NOTE | 2025-05-27 08:17 | A.OFFVIS_ITS ---
Intake Visit Reasons: 1 yr follow up/ PVR/ PSA Intake Note: Patient is present for 1Y/PVR/PSA Urology Medication:NONE Antibiotic Allergy:ERYTHROMYCIN Blood Thinner:NONE TODAY'S PVR:0ML'S Master Welder Required: No Allergies erythromycin base Allergy (Severe, Verified 05/27/25 08:33) Eye Swelling Medication List - Last Reconciled 05/27/25 by LENARD Huff cholecalciferol (vitamin D3) 25 mcg PO DAILY magnesium gluconate 180 mg PO DAILY pantoprazole 40 mg PO DAILY simvastatin 5 mg PO BEDTIME 90 days HPI Comments Details: Adam is a very pleasant 69-year-old male patient of Dr. Stewart. He has a PMH of GERD. He presents to the office today for follow-up. In discussion with the patient today reports to be doing and feeling well. He reports since his last office visit here approximately a year ago he has been doing and feeli ng well. He denies any bothersome urinary issues or concerns. He reports to be happy with his current voiding parameters. Recent PSA results reviewed with the patient today as noted and trended below. He has a history of previous prostate biopsy for an abnormal CHAVO with a previous urology in [place] that he reports was negative. He otherwise denies urinary urgency, urinary frequency, incontinence, nocturia, hematuria, dysuria, foul smelling urine, changes to urinary stream, flank pain, fever, and or chills. CHAVO offered however deferred. In office urinalysis results reviewed with the patient today. PVR 0 mL. We did discuss slight increase in PSA over the last year in closer surveillance monitoring however patient does not feel this is necessary. He discusses his upcoming travel to [place] in January. PSAs: 04/09 1.0, 06/11 1.3, 06/12 2.3 PFSH Medical History GERD (gastroesophageal reflux disease) Surgical History History of esophagogastroduodenoscopy (EGD) Hx of colonoscopy History of tonsillectomy History of surgery Family History Mother Cancer Father No problems noted. Family/Other Substance use disorder Mental health disorder Maternal Uncle Lung cancer Social History (Updated 04/17/25 @ 07:49 by Whitney Block MD) Housing: House Alcohol intake: former Patient Tobacco Use Status: Former Tobacco user Tobacco use type: Cigarette e-Cigarette/Vaping Use: Never Used Second Hand Smoke Exposure: No service: Yes Current occupational status: retired Cognitive needs: No Hearing needs: No Vision needs: No Review of Systems Const All systems reviewed & are unremarkable except as noted in HPI and below Physical Exam Const General: cooperative, healthy appearing, comfortable, no acute distress, well developed, alert and awake Orientation/consciousness: patient oriented x3 Limitations: no limitations HEENT Head: Yes normal to inspection, Yes normocephalic and Yes atraumatic Ears: hearing grossly normal bilaterally Eyes General: appearance normal, both eyes and all related structures Neck Neck: Yes normal visual inspection and Yes trachea midline Chest Chest palpation & inspection: normal inspection of the chest Resp Effort & Inspection: normal respiratory effort and able to speak in complete sentences Cardio Rate: regular rate GI Inspection: Yes normal to inspection General: Yes no CVA tenderness Back/Spine/Pelvis Back: no CVA tenderness Skin General skin exam: no rashes or lesions noted Neuro General: patient oriented x3 Extrem General: Yes normal to inspection Psych Appearance: grossly normal and well kempt Mental Status: mental status grossly normal Speech and movement: Normal speech and movement present and Clear speech present Affect: normal affect Attitude: cooperative Thought process: Normal thought process present Thought content: Normal thought content present Insight: Fair insight present (Psych) Judgement: Fair judgement present (Psych) Office Procedures Post Void Residual Post Residual Void Post Void Residual (PVR): 0 [id number] Void Residual by ultrasound Results AMB Urinalysis, Automated UA Leukoctes 0 Garry/uL Last Edit by SHAWN Yip on 05/27/25 08:24 UA Nitrite Negative Last Edit by SHAWN Yip on 05/27/25 08:24 UA Urobilinogen 0.2 mg/dL Last Edit by SHAWN Yip on 05/27/25 08:2 4 UA Protein 0 mg/dL Last Edit by SHAWN Yip on 05/27/25 08:24 UA pH 6.5 Last Edit by SHAWN Yip on 05/27/25 08:24 UA Blood 0 Eric/uL Last Edit by SHAWN Yip on 05/27/25 08:24 UA Specific [place] 1.005 Last Edit by SHAWN Yip on 05/27/25 08: 24 UA Ketone Negative Last Edit by SHAWN Yip on 05/27/25 08:24 UA Bilirubin 0 mg/dL Last Edit by SHAWN Yip on 05/27/25 08:24 UA Glucose 0 mg/dL Last Edit by SHAWN Yip on 05/27/25 08:24 Results Reviewed Results Reviewed: Laboratory Last Values Urine pH (Auto) 6.5 05/27/25 08:23 Specific [place] (Auto) 1.005 05/27/25 08:23 Urine Protein (Auto) 0 mg/dL 05/27/25 08:23 Glucose (UA)(Auto) 0 mg/dL 05/27/25 08:23 Urine Ketones (Auto) Negative 05/27/25 08:23 Urine Blood (Auto) 0 Eric/uL 05/27/25 08:23 Urine Nitrite (Auto) Negative 05/27/25 08:23 Urine Bilirubin (Auto) 0 mg/dL 05/27/25 08:23 Urine Urobilinogen (Auto) 0.2 mg/dL 05/27/25 08:23 Leukocyte Esterase (Auto) 0 Garyr/uL 05/27/25 08:23 Assessment & Plan Assessment & Plan (1) BPH (benign prostatic hyperplasia): Code(s): N40.0 - Benign prostatic hyperplasia without lower urinary tract symptoms Category: Medical Plan In office urinalysis results reviewed with the patient today; as noted above. PVR 0 mL. Recent PSA results reviewed with the patient today; as noted above. We did discussed slight increase in PSA over the last year in closer surveillance monitoring however patient declines at this time. We did discuss potential for delay in treatment. He currently denies any bothersome urinary issues or concerns. He reports be happy with current voiding parameters. Will obtain PSA in 1 year. Follow-up in 1 year with PSA and PVR; or sooner with any issues, concerns, and or questions. Orders: Orders AMB Urinalysis Automated Today Z13.9 - Encounter for screening, unspecified Prostate Specific Antigen 1 Year N40.0 - Benign prostatic hyperplasia without lower urinary tract symptoms Patient Instructions: The patient had an opportunity to ask questions regarding the treatment plan. All questions were answered. Physical exam, labs, and imaging were discussed and reviewed in detail. As well as risks, benefits, and discussion of treatment choices. No major barriers to understanding were identified. The patient expressed understanding and agreement with the above treatment plan. The patient was made aware they should contact our office by phone for worsening of their current condition, the appearance of new symptoms, or with any questions or concerns. Compliance is encouraged with any medications and follow up testing that is ordered. It is a privilege to be allowed the opportunity to participate in? your urological care.? Again, if you have any questions or concerns If you have any questions or concerns please do not hesitate to contact me. The office is [phone]. This note is constructed using voice recognition software. While every effort has been made to ensure accuracy railroad yard worker errors may have been included. Yours sincerely, LENARD Huff Coding Level of Care Code Est Pt Level 3 (61505) Diagnoses BPH (benign prostatic hyperplasia) N40.0 CPT Codes Post Residual Void - PVR CPT Code: 06191-Agbx Void Residual by ultrasound ([id number])
== END 2025-05-27 08:36 | disposition home or self-care (01) ==
LOC: HO.HUSH 08:16
PROVIDERS: PCP Internal Medicine; Visit Provider Nurse Practitioner Family
DX: Z13.9 Encounter for screening, unspecified (principal); N40.0 Benign prostatic hyperplasia without lower urinary tract symptoms
CPT/HCPCS: 99213

== ENCOUNTER → 2025-05-27 08:16 | Outpatient (BNVA) | payer BC, SELFPAY | PROVIDERS: PCP Internal Medicine; Visit Provider Nurse Practitioner Family | DX: N40.0 Benign prostatic hyperplasia without lower urinary tract symptoms (principal); Z13.9 Encounter for screening, unspecified | CPT/HCPCS: 51798; 81003 ==

== ENCOUNTER 2025-09-17 12:57 | Outpatient (REF) | payer BC, SELFPAY ==
[2025-09-17 13:48] LABS: MANUAL DIFF FLAG NO
[2025-09-17 14:18] LABS: INTERNATIONAL NORM RATIO 0.9 (0.9-1.1); Prothrombin Time 11.5 SEC (11.2-13.5)
[2025-09-17 14:26] LABS: Hematocrit 51.9 % (42.0-52.0); Hemoglobin 17.5 g/dl (14.0-18.0); Imm Gran Abs Auto 0.02 X10*3/uL (0.00-0.03); Imm Gran Pct Auto 0.3 % (0.0-0.4); Lymphocytes Absolute Auto 1.9 X10*3/uL (1.2-4.9); Mean Corpuscular HGB Conc 33.7 g/dl (31.0-36.0); Mean Corpuscular Hemoglobin 29.8 pg (27.0-33.0); Mean Corpuscular Volume 88.3 fL (80.0-98.0); NRBC Abs Auto 0.000 X10*3/uL (0.0-0.012); NRBC Pct Auto 0.0 /100WBC (0.0-0.2); Platelet Count 237 X10*3/uL (160-400); Red Blood Count 5.88 X10*6/uL (4.60-5.80); White Blood Count 6.4 X10*3/uL (4.8-10.8)
[2025-09-17 14:52] LABS: Alanine Aminotransferase 79 U/L (0-40); Albumin Level 4.8 g/dL (3.5-5.0); Alkaline Phosphatase 50 U/L (39-117); Anion Gap 11 (12-20); Aspartate Amino Transferase 41 U/L (5-37); Blood Urea Nitrogen 14 mg/dL (9-16); Calcium 9.6 mg/dL (8.4-10.2); Carbon Dioxide 25 mmol/L (22-29); Chloride 111 mmol/L (96-108); Estimated Glomerular Filt Rate > 60; Potassium 3.9 mmol/L (3.3-5.1); Sodium 143 mmol/L (135-145); Total Protein 7.3 g/dL (6.5-8.0)
== END 2025-09-17 12:58 | disposition home or self-care (01) ==
LOC: HO.LAB 12:57
PROVIDERS: PCP Internal Medicine; Visit Provider Internal Medicine
DX: R74.01 Elevation of levels of liver transaminase levels (principal); F10.90 Alcohol use, unspecified, uncomplicated; K76.0 Fatty (change of) liver, not elsewhere classified; R73.03 Prediabetes; Z12.11 Encounter for screening for malignant neoplasm of colon
CPT/HCPCS: 36415; 80053; 83036; 85025; 85610

== ENCOUNTER 2025-09-17 12:57 | Outpatient (AMB) | payer BC, SELFPAY ==
--- NOTE | 2025-09-17 13:01 | MHC.OFFVIS ---
Vital Signs 09/17/25 13:02 Height 5 ft 10 in Weight 187 lb 6.287 oz BMI 26.9 BP 124/76 Pulse 72 Intake Visit Reasons: 6m Transaminitis Intake Note: Adam presents in the office as a 6 month follow up for Transminitis. CC: Diagnostics Sales Developer Required: No Allergies erythromycin base Allergy (Severe, Verified 09/17/25 13:07) Eye Swelling HPI Comments Details: 68 y.o M with PMH of GERD, BPH who is here for abnormal LFTs. 06/26/24: Pt reports tht first found out abnormal liver function test almost 30 years ago. At that time was told it was due mother's genes causing high iron - Appears to have HH as pt also reports having phlebotomy for almost a year after which it was stopped due to normal iron level. Was being seen [facility] in [facility]. Pt drinks occ on weekend - 2 drinks of beer or gin. Prev used to drink heavily in his 20s and 30s. Ex smoker 3PPD, quit 15 y ago. No fam hx of cirrhosis. Mother carried the gene per his report. 08/19/24: Here for follow up. Labs and US reviewed. 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 Fib 4 is 1.62 based on most recent testing i.e indeterminate or advanced fibrosis. Pt himself does not have DM or uncontrolled HLD. Has prev hx of heavy etOH use > 30 years ago. Had a cologuard last month which was negative. 11/2024: Elastography Hepatomegaly and hepatic steatosis. The median shear wave velocity in the liver is 1.72 m/s, corresponding to a median liver stiffness of 9.11 kPa. The IQR/median value is 0.08. This is indicative of a quality data set. Findings are indicative of a high elastography value suggestive of compensated advanced chronic liver disease. 02/17/25: Here for follow up. No abd pain, N,V, D. Only complaint is R hand middle finger is difficult to bend or sometimes get stuck in the bent position. Cont to drink 1-2 times a week. Weight is up by 3 lbs. Fib 4 is 1.57 based on most recent labs below. Laboratory Tests 02/13/25 09:13 WBC 6.0 Hgb 17.3 Hct 51.6 Plt Count 242 INR 0.9 Sodium 143 BUN 14 Creatinine 1.18 Total Bilirubin 0.5 AST 51 H ALT 91 H Alkaline Phosphatase 52 09/17/25: Presenting for a six-month follow-up for elevated LFTs. US reviewed, no cirrhosis. He has been abstinent from alcohol for at least two months. Has prediabetes, no recent A1c. The patient takes simvastatin for primary prevention of heart disease due to a family history of a heart problem in his sister at age 53. His cholesterol is noted to be well-controlled. He has a history of smoking a long time ago. For colon cancer screening, the patient completed a Cologuard test in 2023 which was negative. The patient maintains an active lifestyle, walking almost three miles a day for 75-90 minutes. Pt was informed and consented to the use of ambient scribe for this encounter. [facility] Medical History (Updated 09/17/25 @ 13:21 by Jaylene Saleh MD) GERD (gastroesophageal reflux disease) Surgical History (Updated 09/17/25 @ 13:08 by PASCALE Wyatt) Hx of hand surgery History of esophagogastroduodenoscopy (EGD) Hx of colonoscopy History of tonsillectomy History of surgery Family History Mother Cancer Father No problems noted. Family/Other Substance use disorder Mental health disorder Maternal Uncle Lung cancer Social History Housing: House Alcohol intake: former Patient Tobacco Use Status: Former Tobacco user Tobacco use type: Cigarette e-Cigarette/Vaping Use: Never Used Second Hand Smoke Exposure: No service: Yes Current occupational status: retired Cognitive needs: No Hearing needs: No Vision needs: No Review of Systems Narrative Review of Systems - Gastrointestinal: Denies abdominal pain, nausea, vomiting, or changes in stool. - Genitourinary: Reports increased urinary frequency. - Integumentary: Denies itching. Physical Exam Exam Exam: Physical Exam No apparent distress Nonicteric Abdomen soft, nondistended Alert and oriented x3, normal gait Vital Signs: Last Vital Signs Pulse 72 09/17/25 13:02 BP 124/76 09/17/25 13:02 BMI result Body Mass Index 26.9 Assessment & Plan Assessment & Plan (1) MetALD: Code(s): K76.0 - Fatty (change of) liver, not elsewhere classified; F10.90 - Alcohol use, unspecified, uncomplicated Category: Medical (2) Transaminitis: Code(s): R74.01 - Elevation of levels of liver transaminase levels Category: Medical Plan 1. 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 Congratulated on ongoing sobriety from etOH. Encouraged active lifestyle. Plan: - Labs to reassess Fib-4. If low will be discharged to PCP care - Will also check A1c. 2. Colon Cancer Screening - The patient's last screening was a negative Cologuard in 2023. Plan: - Next CRC screening due 2026 - encouraged to opt for colo at that time. Follow up contingent on above Orders: Orders Prothrombin Time INR Today F10.90 - Alcohol use, unspecified, uncomplicated, K76.0 - Fatty (change of) liver, not elsewhere classified Hemoglobin A1c Today R73.03 - Prediabetes Complete Blood Count Auto Diff Today F10.90 - Alcohol use, unspecified, uncomplicated, K76.0 - Fatty (change of) liver, not elsewhere classified Comprehensive Met. Panel Today F10.90 - Alcohol use, unspecified, uncomplicated, K76.0 - Fatty (change of) liver, not elsewhere classified Coding Level of Care Code Est Pt Level 4 (42359) Diagnoses MetALD K76.0; F10.90 Transaminitis R74.01
[2025-09-17 13:02] VITALS: BP 124/76; PULSE 72; BMI 26.9
== END 2025-09-17 14:34 | disposition home or self-care (01) ==
LOC: HO.HGI 12:58
PROVIDERS: PCP Internal Medicine; Visit Provider Internal Medicine
DX: K76.0 Fatty (change of) liver, not elsewhere classified (principal); F10.90 Alcohol use, unspecified, uncomplicated; R74.01 Elevation of levels of liver transaminase levels
CPT/HCPCS: 99214